=== PATIENT | male | born 1950 | race Caucasian/White ===

== ENCOUNTER 2018-08-01 18:05 | Inpatient (IN) | payer MEDICARE ==
--- NOTE | 2018-08-01 18:34 | ED ---
General Adult HPI - General Chief complaint: Neuro Symptoms/Deficit Stated complaint: poss aspiration, coughing, weakness Time Seen by Provider: 08/01/18 18:15 Source: patient, RN notes reviewed Mode of arrival: EMS Limitations: no limitations - History of Present Illness Initial comments: This is a 68-year-old male who presents to the emergency department with the complaint of inability to swallow and coughing a lot since he had problems swallowing earache this started all at 9:00 this morning. Patient states he thinks he aspirated something into his lungs. Since then he has developed some left-sided facial droop and some slurred speech. Denies any headache patient denies noticing any blurred vision. Symptoms of facial droop slurred speech come from his . Patient has not appreciated any extremity weakness or coordination difficulties. Patient denies any fever or chills. Patient denies any chest pain difficulty breathing or shortness breath per patient denies abdominal pain patient denies nausea vomiting or diarrhea. - Related Data Home Medications Medication Instructions Recorded Confirmed Atorvastatin [Lipitor] 20 mg PO DAILY 08/01/18 08/01/18 Fenofibrate Nanocrystallized 145 mg PO DAILY 08/01/18 08/01/18 [Fenofibrate] NIFEdipine [Procardia XL] 90 mg PO DAILY 08/01/18 08/01/18 glipiZIDE [Glucotrol] 5 mg PO TID 08/01/18 08/01/18 metFORMIN HCL ER [Glucophage Xr] 1,000 mg PO HS 08/01/18 08/01/18 metFORMIN HCL ER [Glucophage Xr] 500 mg PO QAM 08/01/18 08/01/18 Allergies Allergy/AdvReac Type Severity Reaction Status Date / Time No Known Allergies Allergy Verified 08/01/18 18:23 Review of Systems ROS Statement: Those systems with pertinent positive or pertinent negative responses have been documented in the HPI. ROS Other: All systems not noted in ROS Statement are negative. Past Medical History Past Medical History: Diabetes Mellitus, Hyperlipidemia History of Any Multi-Drug Resistant Organisms: None Reported Additional Past Surgical History / Comment(s): cataract Past Psychological History: No Psychological Hx Reported Smoking Status: Never smoker Past Alcohol Use History: None Reported Past Drug Use History: None Reported General Exam - General Exam Comments Initial Comments: GENERAL: Patient is well-developed and well-nourished. Patient is nontoxic and well- hydrated and is in mild distress. ENT: Neck is soft and supple. No significant lymphadenopathy is noted. Oropharynx is clear. Moist mucous membranes. Neck has full range of motion without eliciting any pain. EYES: The sclera were anicteric and conjunctiva were pink and moist. Extraocular movements of the right eye shows inability to have a lateral gaze. Patient's pupil in that right eye is slightly larger than the left but is reactive. He should also has significant night nystagmus of both eyes. Eyelids were unremarkable. PULMONARY: Unlabored respirations. Good breath sounds bilaterally. No audible rales rhonchi or wheezing was noted. CARDIOVASCULAR: There is a regular rate and rhythm without any murmurs gallops or rubs. ABDOMEN: Soft and nontender with normal bowel sounds. No palpable organomegaly was noted. There is no palpable pulsatile mass. SKIN: Skin is clear with no lesions or rashes and otherwise unremarkable. NEUROLOGIC: Patient is alert and oriented x3. Patient has lateral gaze of the right eye with normal pupillary reflex but slightly larger pupil of the right. Patient has facial droop on the left. Patient also has some slurred speech. MUSCULOSKELETAL:. P Normal extremities with adequate strength and full range of motion. No lower extremity swelling or edema. No calf tenderness. LYMPHATICS: No significant lymphadenopathy is noted PSYCHIATRIC: Normal psychiatric evaluation. Limitations: no limitations Course Vital Signs 08/01/18 08/01/18 18:13 18:39 Temperature 97.7 F Pulse Rate 87 86 Respiratory 18 18 Rate Blood Pressure 146/87 134/79 O2 Sat by Pulse 95 100 Oximetry Medical Decision Making - Medical Decision Making EKG shows sinus rhythm at 82 bpm KS interval is 226 QRS is 98 QT interval 358 QTC is 418. Patient's EKG shows T-wave inversions in leads V4 V5 and V6 as well as 2 and some flattening of the T-wave in 3 and aVF. Code stroke was called for this patient was contacted immediately. Once his CT and CTA were done Dr. Ortiz was contacted again he reviewed the scans and determined there was no intervention necessary. I contacted Dr. Us he is aware the patient and the patient would be admitted upstairs. I spoke with Dr. Clinton he accepted the admission I wrote admitting orders. - Lab Data Result diagrams: 08/01/18 18:26 08/01/18 18:26 Lab Results 08/01/18 08/01/18 08/01/18 Range/Units 18:26 18:26 18:26 WBC 15.1 H (3.8-10.6) k/uL RBC 4.35 (4.30-5.90) m/uL Hgb 14.1 (13.0-17.5) gm/dL Hct 40.5 (39.0-53.0) % MCV 93.1 (80.0-100.0) fL MCH 32.4 (25.0-35.0) pg MCHC 34.8 (31.0-37.0) g/dL RDW 13.2 (11.5-15.5) % Plt Count 310 (150-450) k/uL Neutrophils % 85 % Lymphocytes % 9 % Monocytes % 4 % Eosinophils % 1 % Basophils % 0 % Neutrophils # 12.8 H (1.3-7.7) k/uL Lymphocytes # 1.4 (1.0-4.8) k/uL Monocytes # 0.6 (0-1.0) k/uL Eosinophils # 0.2 (0-0.7) k/uL Basophils # 0.0 (0-0.2) k/uL PT (9.0-12.0) sec INR (<1.2) APTT (22.0-30.0) sec Sodium 140 (137-145) mmol/L Potassium 4.5 (3.5-5.1) mmol/L Chloride 111 H (98-107) mmol/L Carbon Dioxide 17 L (22-30) mmol/L Anion Gap 12 mmol/L BUN 18 (9-20) mg/dL Creatinine 0.82 (0.66-1.25) mg/dL Est GFR (CKD-EPI)AfAm >90 (>60 ml/min/1.73 sqM) Est GFR (CKD-EPI)NonAf 90 (>60 ml/min/1.73 sqM) Glucose 229 H (74-99) mg/dL Calcium 9.4 (8.4-10.2) mg/dL Total Bilirubin 0.5 (0.2-1.3) mg/dL AST 23 (17-59) U/L ALT 38 (21-72) U/L Alkaline Phosphatase 54 (38-126) U/L Total Creatine Kinase 52 L (55-170) U/L CK-MB (CK-2) 0.9 (0.0-2.4) ng/mL CK-MB (CK-2) Rel Index 1.7 Troponin I <0.012 (0.000-0.034) ng/mL Total Protein 6.8 (6.3-8.2) g/dL Albumin 4.1 (3.5-5.0) g/dL 08/01/18 Range/Units 18:26 WBC (3.8-10.6) k/uL RBC (4.30-5.90) m/uL Hgb (13.0-17.5) gm/dL Hct (39.0-53.0) % MCV (80.0-100.0) fL MCH (25.0-35.0) pg MCHC (31.0-37.0) g/dL RDW (11.5-15.5) % Plt Count (150-450) k/uL Neutrophils % % Lymphocytes % % Monocytes % % Eosinophils % % Basophils % % Neutrophils # (1.3-7.7) k/uL Lymphocytes # (1.0-4.8) k/uL Monocytes # (0-1.0) k/uL Eosinophils # (0-0.7) k/uL Basophils # (0-0.2) k/uL PT 10.0 (9.0-12.0) sec INR 0.9 (<1.2) APTT 18.3 L (22.0-30.0) sec Sodium (137-145) mmol/L Potassium (3.5-5.1) mmol/L Chloride (98-107) mmol/L Carbon Dioxide (22-30) mmol/L Anion Gap mmol/L BUN (9-20) mg/dL Creatinine (0.66-1.25) mg/dL Est GFR (CKD-EPI)AfAm (>60 ml/min/1.73 sqM) Est GFR (CKD-EPI)NonAf (>60 ml/min/1.73 sqM) Glucose (74-99) mg/dL Calcium (8.4-10.2) mg/dL Total Bilirubin (0.2-1.3) mg/dL AST (17-59) U/L ALT (21-72) U/L Alkaline Phosphatase (38-126) U/L Total Creatine Kinase (55-170) U/L CK-MB (CK-2) (0.0-2.4) ng/mL CK-MB (CK-2) Rel Index Troponin I (0.000-0.034) ng/mL Total Protein (6.3-8.2) g/dL Albumin (3.5-5.0) g/dL Critical Care Time Critical Care Time: Yes Total Critical Care Time: 35 Disposition Clinical Impression: Cerebrovascular accident Disposition: ADMITTED IP TO THIS HOSP Referrals: Shannon Fischer DO [Primary Care Provider] - 1-2 days Time of Disposition: 20:38
[2018-08-01 18:39] LABS: Basophils % (A) 0 %; Eosinophils # (A) 0.2 k/uL (0-0.7); Eosinophils % (A) 1 %; HCT 40.5 % (39.0-53.0); HGB 14.1 gm/dL (13.0-17.5); Lymphocytes # (A) 1.4 k/uL (1.0-4.8); Lymphocytes % (A) 9 %; MCH 32.4 pg (25.0-35.0); MCHC 34.8 g/dL (31.0-37.0); MCV 93.1 fL (80.0-100.0); Mean Platelet Volume 6.6; Monocytes # (A) 0.6 k/uL (0-1.0); Monocytes % (A) 4 %; Neutrophils # (A) 12.8 k/uL (1.3-7.7); Neutrophils % (A) 85 %; Platelet Count 310 k/uL (150-450); RBC 4.35 m/uL (4.30-5.90); RDW 13.2 % (11.5-15.5); WBC 15.1 k/uL (3.8-10.6)
--- NOTE | 2018-08-01 18:53 | CT ---
EXAMINATION TYPE: CT brain wo con for TPA DATE OF EXAM: 08/01/2018 COMPARISON: None HISTORY: Neuro deficits. CT DLP: 1022 mGycm Automated exposure control for dose reduction was used. FINDINGS: There is cerebral cortical atrophy. There is no mass effect nor midline shift. There is no sign of in tracranial hemorrhage. There is some patchy hypodensity in the periventricular white matter. IMPRESSION: CEREBRAL ATROPHY AND CHRONIC SMALL VESSEL ISCHEMIA. NO ACUTE INTRACRANIAL ABNORMALITY.
[2018-08-01 18:54] LABS: INR 0.9 (<1.2)
[2018-08-01 19:01] LABS: Creatine Kinase 52 U/L (55-170)
[2018-08-01 19:03] LABS: ALT 38 U/L (21-72); AST 23 U/L (17-59); Albumin 4.1 g/dL (3.5-5.0); Alkaline Phosphatase 54 U/L (38-126); Anion Gap 12 mmol/L; Blood Urea Nitrogen 18 mg/dL (9-20); Calcium 9.4 mg/dL (8.4-10.2); Carbon Dioxide 17 mmol/L (22-30); Chloride 111 mmol/L (98-107); Glucose 229 mg/dL (74-99); Potassium 4.5 mmol/L (3.5-5.1); Sodium 140 mmol/L (137-145); Total Bilirubin 0.5 mg/dL (0.2-1.3); Total Protein 6.8 g/dL (6.3-8.2)
--- NOTE | 2018-08-01 19:11 | CT ---
EXAMINATION TYPE: CODE STROKE: CTA head neck DATE OF EXAM: 08/01/2018 HISTORY: Neuro deficits. COMPARISON: None CT DLP: 364.6 mGycm. Automated Exposure Control for Dose Reduction was Utilized. TECHNIQUE: CTA scan of the neck is performed with IV Contrast, patient injected with 65ml mL of Isov ue 370, axial images are obtained, coronal and sagittal reformatted images are reviewed. Three-D amy nstructed images are created on an independent workstation and reviewed. FINDINGS: There is normal branching pattern of the great vessels on the aortic arch. There is bilateral arteria l flow in the subclavian arteries. There is bilateral arterial flow in the vertebral arteries. There is arterial flow in the common internal and external carotid arteries bilaterally. There is arterial flow in the vertebrobasilar artery system. There is wide patency of the carotid artery bifurcations. I see no evidence of hemodynamic stenosis. There is arterial flow in the anterior middle and posterior cerebral arteries. There is normal contra st opacification of the venous sinuses. I see no evidence of intracranial aneurysm or neovascularity. There is no evidence Of hemodynamic stenosis. IMPRESSION: Negative CT angiogram of the neck. Negative CT angiogram of the brain. No evidence of hemodynamic stenosis.
[2018-08-01 19:14] LABS: Creatine Kinase MB 0.9 ng/mL (0.0-2.4); Troponin I <0.012 ng/mL (0.000-0.034)
[2018-08-01 19:17] LABS: Partial Thromboplastin Time 18.3 sec (22.0-30.0)
[2018-08-01] MEDS ORDERED: ASPIRIN 325 MG TAB PO STA (20:29)
[2018-08-01] MEDS ORDERED: ATORVASTATIN 80 MG TAB PO STA (20:29)
--- NOTE | 2018-08-01 21:16 | XR ---
EXAMINATION TYPE: XR chest 2V DATE OF EXAM: 08/01/2018 COMPARISON: NONE HISTORY: Weakness difficulty breathing TECHNIQUE: Frontal and lateral views of the chest are obtained. FINDINGS: There is no heart failure nor confluent pneumonic infiltrate. Costophrenic angles are benjamin r. Bony thorax is intact. There are chest leads. IMPRESSION: No active cardia pulmonary disease. Normal heart.
[2018-08-02] MEDS ORDERED: ATORVASTATIN 20 MG TAB PO SCH (00:43)
[2018-08-02] MEDS ORDERED: NALOXONE 0.4 MG/ML 1 ML VIAL IV PRN (00:45)
[2018-08-02] MEDS: SODIUM CHLORIDE 0.9% 1,000 ML IV SCH ×2 (01:38→11:55)
--- NOTE | 2018-08-02 03:07 | P.HPIM ---
History of Present Illness H&P Date: 08/01/18 Chief Complaint: Dysphagia and unsteady gait 68-year-old male with history of diabetes mellitus and hypertension Patient presented to the hospital due to worsening neurologic symptoms started all of a sudden today. Patient reports he was at his baseline status of health up until last night. However when he woke up this morning and tried to drink some water he had some dysphagia didn't feel well so he decided sleep more and then he woke up around noon tried to eat something and he again had dysphagia described as trouble swallowing and choking. His noticed that his voice was not normal kind of muffled. He went back to bed but then later on when his woke him up later in the afternoon he found himself off balance and was falling to the left side and was unable to walk on his own that's when the family decided to come to the hospital. Code stroke was in initiated in the hospital and he was evaluated CT of the head was unremarkable CT angiogram of the head and neck was unremarkable for any stenosis. Neurology recommended observation for possible stroke. Otherwise patient denies any focal neurologic deficits in his extremities. He was also found to have left facial droop in the ER that the family didn't notice from earlier. Patient denies any history of stroke or CAD. Patient denies any GI bleeding denies any headache. He denies any hearing changes, denies any chest pain trouble breathing denies any abdominal pain nausea or vomiting. Patient also reporting some diplopia at time of interview which resolves with covering the right eye. He reports history of cataract in his right eye Review of Systems Pertinent positives as noted in HPI. All other systems were reviewed and are negative Past Medical History Past Medical History: Diabetes Mellitus, Hyperlipidemia History of Any Multi-Drug Resistant Organisms: None Reported Additional Past Surgical History / Comment(s): cataract Past Psychological History: No Psychological Hx Reported Smoking Status: Never smoker Past Alcohol Use History: None Reported Past Drug Use History: None Reported - Past Family History Father Family Medical History: CVA/TIA, Myocardial Infarction ([place]) Medications and Allergies Home Medications Medication Instructions Recorded Confirmed Type Atorvastatin [Lipitor] 20 mg PO DAILY 08/01/18 08/01/18 History Fenofibrate Nanocrystallized 145 mg PO DAILY 08/01/18 08/01/18 History [Fenofibrate] NIFEdipine [Procardia XL] 90 mg PO DAILY 08/01/18 08/01/18 History glipiZIDE [Glucotrol] 5 mg PO TID 08/01/18 08/01/18 History metFORMIN HCL ER [Glucophage Xr] 1,000 mg PO HS 08/01/18 08/01/18 History metFORMIN HCL ER [Glucophage Xr] 500 mg PO QAM 08/01/18 08/01/18 History Allergies Allergy/AdvReac Type Severity Reaction Status Date / Time No Known Allergies Allergy Verified 08/01/18 18:23 Physical Exam Vitals: Vital Signs Temp Pulse Resp BP Pulse Ox 08/01/18 18:39 86 18 134/79 100 08/01/18 18:13 97.7 F 87 18 146/87 95 Intake and Output 08/01/18 08/01/18 08/02/18 14:59 22:59 06:59 Other: Weight 90.718 kg Constitutional: No acute distress, conversant, pleasant Eyes: Anicteric sclerae, moist conjunctiva, no lid-lag Pupils equal round reactive to light Nystagmus bilateral eyes horizontal and vertical ENMT: NC/AT Oropharynx clear, no erythema, or exudates Neck: Supple, FROM, no masses, or JVD No carotid bruits No thyromegaly Lungs: Clear to auscultation Clear to percussion Normal respiratory effort, no accessory muscle use Cardiovascular: Heart regular in rate and rhythm, No murmurs, gallops, or rubs No peripheral edema Abdominal: Soft Nontender, no guarding, rebound or rigidity Abdomen moving with respiration Normoactive bowel sounds No hepatomegaly, No splenomegaly No palpable mass No abdominal wall hernia noted Skin: Normal temperature, tone, texture, turgor No induration No subcutaneous nodules No rash, lesions No ulcers Extremities: No digital cyanosis No clubbing Pedal pulses intact and symmetrical Radial pulses intact and symmetrical No calf tenderness Psychiatric: Alert and oriented to person, place and time Appropriate affect fair judgment Neuro speech is slightly muffled, Muscles Strength 5/5 in all 4 extremities Sensation to light touch grossly present throughout Cranial nerve VII shows upper motor lesion on the left side, limitation of right lateral rectus unknown chronicity per patient and family, nystagmus, otherwise cranial nerves unremarkable, no tongue deviation, uvula central, soft palate is symmetrical. No focal sensory deficits Finger-nose dysmetria resolved by covering the right eye, election exam was unremarkable, plantar reflex was upwards on the right side and equivocal on the left Gait not tested, patient reported unsteady gait home Lymphatics: no palpable cervical or supraclavicular , or inguinal lymph nodes Results CBC & Chem 7: 08/01/18 18:26 08/01/18 18:26 Labs: Abnormal Lab Results - Last 24 Hours (Table) 08/01/18 08/01/18 08/01/18 Range/Units 18:26 18:26 18:26 WBC 15.1 H (3.8-10.6) k/uL Neutrophils # 12.8 H (1.3-7.7) k/uL APTT (22.0-30.0) sec Chloride 111 H (98-107) mmol/L Carbon Dioxide 17 L (22-30) mmol/L Glucose 229 H (74-99) mg/dL Total Creatine Kinase 52 L (55-170) U/L 08/01/18 Range/Units 18:26 WBC (3.8-10.6) k/uL Neutrophils # (1.3-7.7) k/uL APTT 18.3 L (22.0-30.0) sec Chloride (98-107) mmol/L Carbon Dioxide (22-30) mmol/L Glucose (74-99) mg/dL Total Creatine Kinase (55-170) U/L Assessment and Plan Assessment: 68-year-old male with history of diabetes mellitus and hypertension, admitted as an inpatient with anticipated length of stay more than 48 hours as patient presented with symptoms of left facial droop and dysphagia, suspected brainstem stroke. CT angiogram of the head and neck was unremarkable. Patient with a for further neurologic evaluation Plan: Acute CVA suspected brainstem due to symptoms of Left facial droop, dysphagia, and diplopia Full dose aspirin Lipitor Neurochecks CT angiogram the head and neck and CT of the head was reviewed Neuro consult PT/OT Check TSH, vitamin B12, echocardiogram of the heart Nothing by mouth Swallow eval Check MRI of the brain rule out brainstem ischemia Diabetes mellitus On insulin Hypertension Hold Procardia allow for permissive hypertension for the first 24-48 hours DVT prophylaxis mechanical due to acute CVA Surrogate decision-maker: Patient CODE STATUS: Full code Discussed with: Patient, ER, RN Anticipated discharge: 48-[address]: Pending clinical course A total of 60 minutes was spent on the care of this complex patient more than 50 % of the time was spent in counseling and care coordination.
[2018-08-02 06:14] LABS: Glucose,Whole Blood 156 mg/dL (75-99)
[2018-08-02] MEDS: INSULIN ASPART 100 UNIT/ML 1 ML 10 ML VIAL SQ SCH ×4 (06:16→20:54)
[2018-08-02] MEDS ORDERED: ASPIRIN 325 MG TAB PO SCH (09:00)
[2018-08-02] MEDS: ATORVASTATIN 80 MG TAB PO SCH (10:37)
--- NOTE | 2018-08-02 11:37 | MR ---
MR brain without contrast HISTORY: Brainstem stroke Multiplanar multisequence imaging through the brain. Correlation to CT brain 08/01/2018 There is restricted diffusion involving the left medulla posteriorly. There is corresponding abnormal signal on inversion recovery T2-weighted sequences. There is asymmetry in the flow void in the left vertebral artery as compared to the right on axial image 3, 4. Inversion recovery and T2-weighted seq uences show abnormal signal in the left aracely extending to the left cerebral peduncle. Scattered hyper intensities, confluent hyperintensity on T2 and inversion recovery sequence present in the periventri cular, pericallosal, subcortical and deep white matter. Cortical atrophy is present. Orbits are symme tric. Gaze of the globes is towards the left. Corpus callosum, pituitary, cervical medullary junction , cerebellopontine angles are unremarkable. IMPRESSION: Findings compatible with brainstem infarct as described. Additional areas of chronic smal l vessel ischemia and age-related atrophy. Asymmetric signal within the vertebral arteries, MRA may b e of benefit. Additional findings above.
[2018-08-02 11:38] LABS: Glucose,Whole Blood 184 mg/dL (75-99)
[2018-08-02] MEDS: HEPARIN SODIUM,PORCINE 5,000 UNIT/ML 1 ML VIAL SQ SCH ×2 (11:53→20:54)
--- NOTE | 2018-08-02 11:55 | ECHOF ---
Referral Reason:stroke MEASUREMENTS -------- HEIGHT: 152.4 cm WEIGHT: 90.7 kg BP: 149/96 RVIDd: 3.3 cm (< 3.3) IVSd: 1.3 cm (0.6 - 1.1) LVIDd: 4.9 cm (3.9 - 5.3) LVPWd: 1.2 cm (0.6 - 1.1) IVSs: 1.7 cm LVIDs: 3.6 cm LVPWs: 1.6 cm LAESV Index (A-L): 26.90 ml/m Ao Diam: 4.5 cm (2.0 - 3.7) AV Cusp: 1.6 cm (1.5 - 2.6) MV EXCURSION: 14.924 mm (> 18.000) MV EF SLOPE: 62 mm/s (70 - 150) EPSS: 0.3 cm MV E Marc: 0.64 m/s MV DecT: 237 ms MV A Marc: 0.93 m/s MV E/A Ratio: 0.69 AV maxP.02 mmHg AV meanP.89 mmHg AR PHT: 498 ms RAP: 5.00 mmHg RVSP: 20.73 mmHg FINDINGS -------- Sinus rhythm. This was a technically adequate study. The left ventricular size is normal. There is mild concentric left ventricular hypertrophy. Overa ll left ventricular systolic function is normal with, an EF between 55 - 60 %. The right ventricle is normal in size. Normal LA size by volume 22+/-6 ml/m2. The right atrial size is normal. There is mild aortic valve sclerosis. There is mild aortic regurgitation. Peak/mean gradient acro ss the Aortic Valve is 14.02mmHg / 6.89mmHg. The mitral valve leaflets are mildly thickened. Mild mitral regurgitation is present. Mild tricuspid regurgitation present. Right ventricular systolic pressure is normal at < 35 mmHg. The right ventricular systolic pressure, as measured by Doppler, is 20.73mmHg. Trace/mild (physiologic) pulmonic regurgitation. Aortic Root is Dilated and measures 4.5cm, Ascending is dilated and measures 4.1cm. There is no pericardial effusion. CONCLUSIONS -------- 1. Sinus rhythm. 2. This was a technically adequate study. 3. The left ventricular size is normal. 4. There is mild concentric left ventricular hypertrophy. 5. Overall left ventricular systolic function is normal with, an EF between 55 - 60 %. 6. Normal LA size by volume 22+/-6 ml/m2. 7. There is mild aortic valve sclerosis. 8. There is mild aortic regurgitation. 9. Peak/mean gradient across the Aortic Valve is 14.02mmHg / 6.89mmHg. 10. The mitral valve leaflets are mildly thickened. 11. Mild mitral regurgitation is present. 12. Mild tricuspid regurgitation present. 13. Right ventricular systolic pressure is normal at < 35 mmHg. 14. Trace/mild (physiologic) pulmonic regurgitation. 15. Aortic Root is Dilated and measures 4.5cm, Ascending is dilated and measures 4.1cm. 16. There is no pericardial effusion. AUTO APPRAISER: Arlene Ortiz RDCS
--- NOTE | 2018-08-02 13:00 | P.PN ---
Subjective Progress Note Date: 08/02/18 Patient is doing well this morning. He did not pass his bedside swallow study this morning. He continues to have facial symmetry with left facial droop. He denies any numbness or tingling anywhere. Objective - Vital Signs Vital signs: Vital Signs Temp 97.6 F 08/02/18 08:50 Pulse 71 08/02/18 08:50 Resp 18 08/02/18 08:50 BP 159/94 08/02/18 08:50 Pulse Ox 96 08/02/18 08:50 Intake & Output 08/01/18 08/02/18 08/02/18 18:59 06:59 18:59 Output Total 375 150 Balance -375 -150 Weight 90.718 kg 94.5 kg Output: Urine 375 150 Other: Voiding Method Urinal Urinal # Voids 1 1 - Exam General: The patient is awake and alert, in no distress Eye: there is normal conjunctiva bilaterally. Cardiovascular: Normal S1-S2, no S3-S4, no murmurs. Respiratory: Lungs clear to auscultation bilaterally Gastrointestinal: Abdomen is soft, nontender Musculoskeletal: There is no pedal edema. Neurological:. Speech is normal. Skin: Skin is warm and dry - Labs CBC & Chem 7: 08/01/18 18:26 08/01/18 18:26 Labs: Abnormal Lab Results - Last 24 Hours (Table) 08/01/18 08/01/18 08/01/18 Range/Units 18:26 18:26 18:26 WBC 15.1 H (3.8-10.6) k/uL Neutrophils # 12.8 H (1.3-7.7) k/uL APTT (22.0-30.0) sec Chloride 111 H (98-107) mmol/L Carbon Dioxide 17 L (22-30) mmol/L Glucose 229 H (74-99) mg/dL POC Glucose (mg/dL) (75-99) mg/dL Total Creatine Kinase 52 L (55-170) U/L 08/01/18 08/02/18 08/02/18 Range/Units 18:26 06:13 11:36 WBC (3.8-10.6) k/uL Neutrophils # (1.3-7.7) k/uL APTT 18.3 L (22.0-30.0) sec Chloride (98-107) mmol/L Carbon Dioxide (22-30) mmol/L Glucose (74-99) mg/dL POC Glucose (mg/dL) 156 H 184 H (75-99) mg/dL Total Creatine Kinase (55-170) U/L Assessment and Plan Assessment: 1. Acute CVA involving the brainstem. Noted on MRI of the brain. Continue full dose aspirin daily. Lipitor 80 mg daily. PT/OT/speech pathology evaluation. Patient failed his swallow study today. Scan of the brain and CT angiogram on presentation were both normal. Awaiting neurology evaluation. Echocardiogram showed preserved ejection fraction with no significant valvular abnormality and no intracardiac source for stroke. 2. Type 2 diabetes mellitus, oral agents on hold. Continue sliding scale insulin. A1c pending. 3. Essential hypertension, on Procardia at home. Currently on hold to allow permissive hypertension 4. DVT prophylaxis with subcu heparin Today, I reviewed his medication list and lab work results. Patient continues to be nothing by mouth. IV fluids changed to D5/half-normal saline at the 100 mL per hour. Aspirin changed to rectal while nothing by mouth. Continue telemetry monitoring. Thyroid function tests within normal range.
[2018-08-02] MEDS: DEXTROSE 5%-0.45% NACL 1,000 ML IV SCH ×2 (13:01→20:54)
--- NOTE | 2018-08-02 15:37 | P.CONS ---
History of Present Illness - Chief Complaint Gait disturbance - History of Present Illness I had the opportunity to see patient for inpatient rehab consultation with regard to gait disturbance. He is admitted to [facility] August 01 with difficulty with swallowing as well as balance. Head CT demonstrates cerebral atrophy and age-related change. Angiogram CT negative. Chest x-ray negative. Brain MRI with brainstem infarct as well as white matter atrophy and age- related change. PT reports moderate assistance for bed mobility and transfer and minimal to moderate assistance for gait 20 feet with roller walker. OT reports minimal assistance for upper dressing and toileting and moderate assistance for lower dressing and bathing and transfers. Speech therapy reports severe oral pharyngeal dysphagia. Previous functional history as elicited from patient: 68-year-old right-handed white male who is lives and 2 floor home with . Both retired. does the laundry and patient does the cooking and a both drive. Patient independent with standing shower and gait without device. It is an intermittent smoker. Denies alcohol. Dr. King Maravilla is regular doctor. Family history father with [place]. Review of Systems Review of systems: ENT: Swallow disturbance. Eyes: Denies discharge or photophobia. Cardiac: Denies chest pain or palpitation. Pulmonary: Denies cough or shortness of breath. Gastrointestinal: Denies nausea, emesis, constipation, diarrhea. Genitourinary: Denies discharge or frequency. Musculoskeletal: Denies muscle or bone aches. Neurologic: Balance disturbance. Endocrine: Denies shakes or sweats. Oncology: Denies cancers. Dermatologic: Denies rash, itching, pruritus. ALLERGY/immunology: Denies sneezes, rashes. Past Medical History Past Medical History: Diabetes Mellitus, Hyperlipidemia Additional Past Medical History / Comment(s): skin cancer with removal. pt is poor historian - no family with him. History of Any Multi-Drug Resistant Organisms: None Reported Additional Past Surgical History / Comment(s): cataract Past Anesthesia/Blood Transfusion Reactions: No Reported Reaction Additional Past Anesthesia/Blood Transfusion Reaction / Comm: pt states he has never had a blood transfusion or anesthesia Past Psychological History: No Psychological Hx Reported Smoking Status: Never smoker Past Alcohol Use History: None Reported Past Drug Use History: None Reported - Past Family History Father Family Medical History: CVA/TIA, Myocardial Infarction ([place]) Medications and Allergies Home Medications Medication Instructions Recorded Confirmed Type Atorvastatin [Lipitor] 20 mg PO DAILY 08/01/18 08/01/18 History Fenofibrate Nanocrystallized 145 mg PO DAILY 08/01/18 08/01/18 History [Fenofibrate] NIFEdipine [Procardia XL] 90 mg PO DAILY 08/01/18 08/01/18 History glipiZIDE [Glucotrol] 5 mg PO TID 08/01/18 08/01/18 History metFORMIN HCL ER [Glucophage Xr] 1,000 mg PO HS 08/01/18 08/01/18 History metFORMIN HCL ER [Glucophage Xr] 500 mg PO QAM 08/01/18 08/01/18 History Allergies Allergy/AdvReac Type Severity Reaction Status Date / Time No Known Allergies Allergy Verified 08/01/18 18:23 Physical Exam Vitals: Vital Signs Temp Pulse Pulse Resp BP BP Pulse Ox 08/02/18 12:30 70 18 162/89 95 08/02/18 08:50 97.6 F 71 18 159/94 96 08/02/18 03:36 81 20 149/90 96 08/02/18 03:32 81 20 08/02/18 00:39 97.9 F 83 20 136/84 96 08/01/18 18:39 86 18 134/79 100 08/01/18 18:13 97.7 F 87 18 146/87 95 Intake and Output 08/02/18 08/02/18 08/02/18 06:59 14:59 22:59 Output Total 375 450 Balance -375 -450 Output: Urine 375 450 Other: Voiding Method Urinal Urinal # Voids 1 1 # Bowel Movements 0 Weight 94.5 kg Skin: Good color, texture, turgor. General: Medium build and comfortable appearance. Head: Normocephalic, atraumatic. Eyes: Symmetric. Pupils equal round. Ears: Symmetric. Hearing within normal limits. Mouth: Clear. Neck: Supple. Carotid without bruit. Cardiac: Regular rate and rhythm. Lungs: Clear anteriorly and posteriorly. Abdomen: Soft active nontender. Extremities: Normal tone. Neurological: Mental status: Alert, cooperative, pleasant. Cranial nerves: Symmetric facial tone and trapezius. Motor: Normal strength and isolation all 4 limbs but ataxic. Sensation: Intact throughout. DTRs: Symmetric and equal throughout. Mobility: Sits with assistance. Results CBC & Chem 7: 08/01/18 18:26 12/13/18 18:26 Labs: Abnormal Lab Results - Last 24 Hours (Table) 08/01/18 08/01/18 08/01/18 Range/Units 18:26 18:26 18:26 WBC 15.1 H (3.8-10.6) k/uL Neutrophils # 12.8 H (1.3-7.7) k/uL APTT (22.0-30.0) sec Chloride 111 H (98-107) mmol/L Carbon Dioxide 17 L (22-30) mmol/L Glucose 229 H (74-99) mg/dL POC Glucose (mg/dL) (75-99) mg/dL Total Creatine Kinase 52 L (55-170) U/L 08/01/18 08/02/18 08/02/18 Range/Units 18:26 06:13 11:36 WBC (3.8-10.6) k/uL Neutrophils # (1.3-7.7) k/uL APTT 18.3 L (22.0-30.0) sec Chloride (98-107) mmol/L Carbon Dioxide (22-30) mmol/L Glucose (74-99) mg/dL POC Glucose (mg/dL) 156 H 184 H (75-99) mg/dL Total Creatine Kinase (55-170) U/L Assessment and Plan (1) Cerebrovascular accident Current Visit: Yes Status: Acute Code(s): I63.9 - CEREBRAL INFARCTION, UNSPECIFIED SNOMED Code(s): 481530136 Plan: Impression: 1. Gait disturbance. 2. 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 3. Diabetes. 4. Dyslipidemia. Comments and plan: At this time PT, OT, [employer] MACHINE OPERATOR ongoing. Safety concerns noted. Have discussed with patient will follow therapy over weekend and reassess Sunday a.m. for possible admission to rehab unit. Patient seems agreeable if necessary.
[2018-08-02] MEDS: ASPIRIN 300 MG SUPP RECTAL SCH (16:45)
[2018-08-02 17:04] LABS: Hemoglobin A1C 7.8 % (4.0-6.0)
[2018-08-02 17:10] LABS: Glucose,Whole Blood 173 mg/dL (75-99)
--- NOTE | 2018-08-02 17:12 | P.CONS ---
History of Present Illness - Reason for Consult Consult date: 08/02/18 Stroke - Chief Complaint Dysphagia - History of Present Illness Is a pleasant 68-year-old male being evaluated by the neurology service for symptoms of stroke. The patient was in his usual state of good health up until the other night. He woke up and tried to drink some water and he had some significant dysphagia. He went back to sleep and woke up hours later again he tried to eat and had significant dysphagia. His noticed weakening of his voice. He laid back down to sleep. When he awoke he was significantly off balance and falling to the left side. And he had left facial weakness. He came to the [facility] emergency room and code stroke was called. He was not a candidate for TPA. Initial CT showed no acute intracranial abnormalities CTA of the head and neck showed no significant stenosis. Subsequent MRI of the brain showed brainstem infarct. There was also some chronic small vessel ischemia and age-related atrophy. He has failed a swallowing study. Speech therapy has been working with him and he is able to develop ice chips and swallow without choking. Otherwise, he is nothing by mouth at this time. 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 He still has very poor vision in the right eye. He was complaining of double vision during these attacks. Review of Systems All systems: negative Constitutional: Reports as per HPI Past Medical History Past Medical History: Diabetes Mellitus, Hyperlipidemia Additional Past Medical History / Comment(s): skin cancer with removal. pt is poor historian - no family with him. History of Any Multi-Drug Resistant Organisms: None Reported Additional Past Surgical History / Comment(s): cataract Past Anesthesia/Blood Transfusion Reactions: No Reported Reaction Additional Past Anesthesia/Blood Transfusion Reaction / Comm: pt states he has never had a blood transfusion or anesthesia Past Psychological History: No Psychological Hx Reported Smoking Status: Never smoker Past Alcohol Use History: None Reported Past Drug Use History: None Reported - Past Family History Father Family Medical History: CVA/TIA, Myocardial Infarction ([place]) Medications and Allergies Home Medications Medication Instructions Recorded Confirmed Type Atorvastatin [Lipitor] 20 mg PO DAILY 08/01/18 08/01/18 History Fenofibrate Nanocrystallized 145 mg PO DAILY 08/01/18 08/01/18 History [Fenofibrate] NIFEdipine [Procardia XL] 90 mg PO DAILY 08/01/18 08/01/18 History glipiZIDE [Glucotrol] 5 mg PO TID 08/01/18 08/01/18 History metFORMIN HCL ER [Glucophage Xr] 1,000 mg PO HS 08/01/18 08/01/18 History metFORMIN HCL ER [Glucophage Xr] 500 mg PO QAM 08/01/18 08/01/18 History Allergies Allergy/AdvReac Type Severity Reaction Status Date / Time No Known Allergies Allergy Verified 08/01/18 18:23 Physical Exam Vitals: Vital Signs Temp Pulse Pulse Resp BP BP Pulse Ox 08/02/18 12:30 70 18 162/89 95 08/02/18 08:50 97.6 F 71 18 159/94 96 08/02/18 03:36 81 20 149/90 96 08/02/18 03:32 81 20 08/02/18 00:39 97.9 F 83 20 136/84 96 08/01/18 18:39 86 18 134/79 100 08/01/18 18:13 97.7 F 87 18 146/87 95 Intake and Output 08/02/18 08/02/18 08/02/18 06:59 14:59 22:59 Output Total 375 450 Balance -375 -450 Output: Urine 375 450 Other: Voiding Method Urinal Urinal # Voids 1 1 # Bowel Movements 0 Weight 94.5 kg - Constitutional General appearance: cooperative, no acute distress - EENT Right lateral rectus weakness causing correctable inward gaze Eyes: no abnormal pupil, no EOMI, PERRLA, no ptosis ENT: hearing grossly normal - Neck Neck: normal ROM, no rigidity - Respiratory Respiratory: negative: prolonged expiration, prolonged inspiration - Cardiovascular Rhythm: regular - Gastrointestinal General gastrointestinal: no distended, no tenderness - Neurologic Patient is alert awake and oriented 3. Speech is normal except it does fatigue. Language is normal. Strength is full in bilateral upper lower extremities. He has no sensory deficit. He has definite left side dysmetria and dysdiadochokinesia on the upper extremity. Negative pronator drift. No tremors or seizure-like activities are seen. Results CBC & Chem 7: 08/01/18 18:26 08/01/18 18:26 Labs: Abnormal Lab Results - Last 24 Hours (Table) 08/01/18 08/01/18 08/01/18 Range/Units 18:26 18:26 18:26 WBC 15.1 H (3.8-10.6) k/uL Neutrophils # 12.8 H (1.3-7.7) k/uL APTT (22.0-30.0) sec Chloride 111 H (98-107) mmol/L Carbon Dioxide 17 L (22-30) mmol/L Glucose 229 H (74-99) mg/dL POC Glucose (mg/dL) (75-99) mg/dL Total Creatine Kinase 52 L (55-170) U/L 08/01/18 08/02/18 08/02/18 Range/Units 18:26 06:13 11:36 WBC (3.8-10.6) k/uL Neutrophils # (1.3-7.7) k/uL APTT 18.3 L (22.0-30.0) sec Chloride (98-107) mmol/L Carbon Dioxide (22-30) mmol/L Glucose (74-99) mg/dL POC Glucose (mg/dL) 156 H 184 H (75-99) mg/dL Total Creatine Kinase (55-170) U/L Assessment and Plan (1) Diplopia Current Visit: Yes Status: Acute Code(s): H53.2 - DIPLOPIA SNOMED Code(s) : 92313895 (2) Dysmetria Current Visit: Yes Status: Acute Code(s): R27.8 - OTHER LACK OF COORDINATION SNOMED Code(s): 71872579 (3) Cerebrovascular accident Current Visit: Yes Status: Acute Code(s): I63.9 - CEREBRAL INFARCTION, UNSPECIFIED SNOMED Code(s): 622845462 (4) Gait disturbance Current Visit: Yes Status: Acute Code(s): R26.9 - UNSPECIFIED ABNORMALITIES OF GAIT AND MOBILITY SNOMED Code(s): 37081510 (5) Diabetes Current Visit: Yes Status: Chronic Code(s): E11.9 - TYPE 2 DIABETES MELLITUS WITHOUT COMPLICATIONS SNOMED Code(s): 74133549 (6) Dyslipidemia Current Visit: Yes Status: Chronic Code(s): E78.5 - HYPERLIPIDEMIA, UNSPECIFIED SNOMED Code(s): 651796820 Plan: The patient has suffered a brainstem stroke. He is nothing by mouth right now and receiving rectal aspirin. If his swallowing improves he should be restarted on Lipitor and Plavix. Continue to work with physical therapy, occupational therapy, and speech therapy. He is being evaluated for placement in inpatient rehabilitation. Continue neurological checks. No further neurological workup is needed at this time. We may be called for any significant changes in his neurological status. I have performed a history and physical on the above patient. I have reviewed the above note, and agree.
[2018-08-02 20:38] LABS: Glucose,Whole Blood 156 mg/dL (75-99)
[2018-08-03 05:57] LABS: Glucose,Whole Blood 173 mg/dL (75-99)
[2018-08-03] MEDS: INSULIN ASPART 100 UNIT/ML 1 ML 10 ML VIAL SQ SCH ×4 (06:36→20:53)
[2018-08-03 06:40] LABS: Basophils % (A) 1 %; Eosinophils # (A) 0.2 k/uL (0-0.7); Eosinophils % (A) 3 %; HCT 40.6 % (39.0-53.0); HGB 13.1 gm/dL (13.0-17.5); Lymphocytes # (A) 2.1 k/uL (1.0-4.8); Lymphocytes % (A) 30 %; MCH 29.9 pg (25.0-35.0); MCHC 32.3 g/dL (31.0-37.0); MCV 92.6 fL (80.0-100.0); Mean Platelet Volume 6.6; Monocytes # (A) 0.5 k/uL (0-1.0); Monocytes % (A) 7 %; Neutrophils # (A) 4.1 k/uL (1.3-7.7); Neutrophils % (A) 58 %; Platelet Count 327 k/uL (150-450); RBC 4.38 m/uL (4.30-5.90); RDW 13.1 % (11.5-15.5)
[2018-08-03 07:02] LABS: ALT 36 U/L (21-72); AST 25 U/L (17-59); Albumin 3.9 g/dL (3.5-5.0); Alkaline Phosphatase 45 U/L (38-126); Anion Gap 10 mmol/L; Blood Urea Nitrogen 12 mg/dL (9-20); Calcium 9.4 mg/dL (8.4-10.2); Carbon Dioxide 22 mmol/L (22-30); Chloride 109 mmol/L (98-107); Cholesterol 150 mg/dL (<200); Glucose 170 mg/dL (74-99); HDL Cholesterol 31 mg/dL (40-60); LDL Cholesterol,Calculated 66 mg/dL (0-99); Magnesium 1.8 mg/dL (1.6-2.3); Potassium 3.9 mmol/L (3.5-5.1); Sodium 141 mmol/L (137-145); Total Bilirubin 0.4 mg/dL (0.2-1.3); Total Protein 6.7 g/dL (6.3-8.2); Triglycerides 264 mg/dL (<150)
[2018-08-03] MEDS: DEXTROSE 5%-0.45% NACL 1,000 ML IV SCH ×2 (09:37→19:00)
[2018-08-03] MEDS: HEPARIN SODIUM,PORCINE 5,000 UNIT/ML 1 ML VIAL SQ SCH ×2 (09:38→20:53)
[2018-08-03 11:15] LABS: Glucose,Whole Blood 180 mg/dL (75-99)
--- NOTE | 2018-08-03 11:40 | P.PN ---
Subjective Progress Note Date: 08/03/18 Patient is doing well this morning. He remain nothing by mouth since he failed swallow study. He is practicing swallowing exercises as directed by speech pathology. No acute events overnight reported by nursing staff. Objective - Vital Signs Vital signs: Vital Signs Temp 98.5 F 08/03/18 08:00 Pulse 70 08/03/18 04:00 Resp 16 08/03/18 08:00 BP 162/92 08/03/18 08:00 Pulse Ox 96 08/03/18 08:00 Intake & Output 08/02/18 08/03/18 08/03/18 18:59 06:59 18:59 Output Total 450 1650 Balance -450 -1650 Weight 92.4 kg Output: Urine 450 1650 Other: Voiding Method Urinal Urinal # Voids 1 # Bowel Movements 0 - Exam General: The patient is awake and alert, in no distress Eye: there is normal conjunctiva bilaterally. Cardiovascular: Normal S1-S2, no S3-S4, no murmurs. Respiratory: Lungs clear to auscultation bilaterally Gastrointestinal: Abdomen is soft, nontender Musculoskeletal: There is no pedal edema. Neurological:. Speech is normal. Skin: Skin is warm and dry - Labs CBC & Chem 7: 08/03/18 05:32 08/03/18 05:32 Labs: Abnormal Lab Results - Last 24 Hours (Table) 08/01/18 08/02/18 08/02/18 Range/Units 21:00 11:36 16:57 Chloride (98-107) mmol/L Glucose (74-99) mg/dL POC Glucose (mg/dL) 184 H 173 H (75-99) mg/dL Hemoglobin A1c 7.8 H (4.0-6.0) % Triglycerides (<150) mg/dL HDL Cholesterol (40-60) mg/dL 08/02/18 08/03/18 08/03/18 Range/Units 20:30 05:32 05:53 Chloride 109 H (98-107) mmol/L Glucose 170 H (74-99) mg/dL POC Glucose (mg/dL) 156 H 173 H (75-99) mg/dL Hemoglobin A1c (4.0-6.0) % Triglycerides 264 H (<150) mg/dL HDL Cholesterol 31 L (40-60) mg/dL 08/03/18 Range/Units 11:13 Chloride (98-107) mmol/L Glucose (74-99) mg/dL POC Glucose (mg/dL) 180 H (75-99) mg/dL Hemoglobin A1c (4.0-6.0) % Triglycerides (<150) mg/dL HDL Cholesterol (40-60) mg/dL Assessment and Plan Assessment: 1. Acute CVA involving the brainstem. Noted on MRI of the brain. Continue full dose aspirin daily. Lipitor 80 mg daily. PT/OT/speech pathology evaluation. Patient failed his swallow study today. CT scan of the brain and CT angiogram on presentation were both normal. Appreciate neurology recommendations. Echocardiogram showed preserved ejection fraction with no significant valvular abnormality and no intracardiac source for stroke. 2. Type 2 diabetes mellitus, oral agents on hold. Continue sliding scale insulin. A1c 7.8 3. Essential hypertension, on Procardia at home. Currently on hold to allow permissive hypertension 4. DVT prophylaxis with subcu heparin 5. Discharge planning: Plan for inpatient rehab on Sunday Today, I reviewed his medication list and lab work results. Patient continues to be nothing by mouth. IV fluids with D5/half-normal saline at the 100 mL per hour. Aspirin rectal while nothing by mouth. Continue telemetry monitoring. Thyroid function tests within normal range.
[2018-08-03] MEDS: ATORVASTATIN 80 MG TAB PO SCH ×2 (12:14→14:58)
[2018-08-03] MEDS: ASPIRIN 300 MG SUPP RECTAL SCH (14:58)
[2018-08-03 15:44] LABS: Glucose,Whole Blood 167 mg/dL (75-99)
[2018-08-03 20:32] LABS: Glucose,Whole Blood 155 mg/dL (75-99)
[2018-08-04 05:46] LABS: Glucose,Whole Blood 190 mg/dL (75-99)
[2018-08-04] MEDS: DEXTROSE 5%-0.45% NACL 1,000 ML IV SCH ×3 (06:21→23:00)
[2018-08-04] MEDS: INSULIN ASPART 100 UNIT/ML 1 ML 10 ML VIAL SQ SCH ×4 (06:21→20:35)
[2018-08-04] MEDS: ATORVASTATIN 80 MG TAB PO SCH (08:46)
[2018-08-04] MEDS: HEPARIN SODIUM,PORCINE 5,000 UNIT/ML 1 ML VIAL SQ SCH ×2 (08:52→20:32)
[2018-08-04] MEDS: ASPIRIN 300 MG SUPP RECTAL SCH (08:52)
[2018-08-04 11:03] LABS: Glucose,Whole Blood 174 mg/dL (75-99)
--- NOTE | 2018-08-04 14:01 | P.PN ---
Subjective Progress Note Date: 08/04/18 Patient is doing fairly well today. He feels that he is more off balance this morning compared to yesterday. Practicing swallowing exercises as directed by speech pathologist. No acute events reported to me my nursing staff overnight. Objective - Vital Signs Vital signs: Vital Signs Temp 96.9 F L 08/04/18 08:00 Pulse 77 08/04/18 08:00 Resp 15 08/04/18 03:40 BP 152/95 08/04/18 08:00 Pulse Ox 92 L 08/04/18 08:00 Intake & Output 08/03/18 08/04/18 08/04/18 18:59 06:59 18:59 Intake Total 800 Output Total 800 850 100 Balance 0 -850 -100 Weight 92 kg Intake: Intake, IV Titration 800 Amount Dextrose 5%-0.45% NaCl 1, 800 000 ml @ 100 mls/hr IV . Q10H ARCELIA Rx#:[id number] Oral 0 Output: Urine 800 850 100 Other: Voiding Method Urinal Urinal # Voids 3 - Exam General: The patient is awake and alert, in no distress Eye: there is normal conjunctiva bilaterally. Cardiovascular: Normal S1-S2, no S3-S4, no murmurs. Respiratory: Lungs clear to auscultation bilaterally Gastrointestinal: Abdomen is soft, nontender Musculoskeletal: There is no pedal edema. Neurological:. Speech is normal. Skin: Skin is warm and dry - Labs CBC & Chem 7: 08/03/18 05:32 08/03/18 05:32 Labs: Abnormal Lab Results - Last 24 Hours (Table) 08/03/18 08/03/18 08/04/18 Range/Units 15:43 20:30 05:45 POC Glucose (mg/dL) 167 H 155 H 190 H (75-99) mg/dL 08/04/18 Range/Units 11:01 POC Glucose (mg/dL) 174 H (75-99) mg/dL Assessment and Plan Assessment: This is a 68-year-old male with past medical history noted below who presented to the emergency room originally with what he describes as trouble swallowing and choking. Patient was evaluated in the emergency room and a code stroke was called. Initial computed tomography scan of the brain reported with no acute intracranial findings. Patient was admitted to the hospital for further evaluation. 1. Acute CVA involving the brainstem. Noted on MRI of the brain. Continue full dose aspirin daily. Lipitor 80 mg daily. PT/OT/speech pathology evaluation. Patient failed his swallow study on Sunday. CT scan of the brain and CT angiogram on presentation were both normal. Appreciate neurology recommendations. Echocardiogram showed preserved ejection fraction with no significant valvular abnormality and no intracardiac source for stroke. 2. Type 2 diabetes mellitus, oral agents on hold. Continue sliding scale insulin. A1c 7.8 3. Essential hypertension, on Procardia at home. Currently on hold to allow permissive hypertension 4. Dysphagia, patient states swallow study on Sunday. Plan to repeat swallow study on Sunday. If patient fail again the need to consider alternative route of nutrition including TPN or possibly a PEG tube. Currently getting IV fluids. 5. DVT prophylaxis with subcu heparin 6. Discharge planning: Plan for inpatient rehab on Sunday. Patient was seen by Dr. Valente Today, I reviewed his medication list and lab work results. Patient continues to be nothing by mouth. IV fluids with D5/half-normal saline at the 100 mL per hour. Aspirin rectal while nothing by mouth. Continue telemetry monitoring. Thyroid function tests within normal range.
[2018-08-04 16:14] LABS: Glucose,Whole Blood 164 mg/dL (75-99)
[2018-08-04 20:42] LABS: Glucose,Whole Blood 177 mg/dL (75-99)
[2018-08-05 05:59] LABS: Glucose,Whole Blood 182 mg/dL (75-99)
[2018-08-05] MEDS: INSULIN ASPART 100 UNIT/ML 1 ML 10 ML VIAL SQ SCH ×4 (06:21→21:08)
[2018-08-05 06:29] LABS: Basophils % (A) 0 %; Eosinophils # (A) 0.2 k/uL (0-0.7); Eosinophils % (A) 3 %; HCT 41.9 % (39.0-53.0); HGB 14.2 gm/dL (13.0-17.5); Lymphocytes # (A) 2.4 k/uL (1.0-4.8); Lymphocytes % (A) 31 %; MCH 30.9 pg (25.0-35.0); MCHC 33.8 g/dL (31.0-37.0); MCV 91.5 fL (80.0-100.0); Mean Platelet Volume 6.3; Monocytes # (A) 0.5 k/uL (0-1.0); Monocytes % (A) 7 %; Neutrophils # (A) 4.5 k/uL (1.3-7.7); Neutrophils % (A) 57 %; Platelet Count 320 k/uL (150-450); RBC 4.58 m/uL (4.30-5.90); RDW 13.1 % (11.5-15.5); WBC 7.9 k/uL (3.8-10.6)
[2018-08-05 06:38] LABS: Anion Gap 10 mmol/L; Blood Urea Nitrogen 13 mg/dL (9-20); Calcium 9.3 mg/dL (8.4-10.2); Carbon Dioxide 22 mmol/L (22-30); Chloride 107 mmol/L (98-107); Glucose 177 mg/dL (74-99); Potassium 3.7 mmol/L (3.5-5.1); Sodium 139 mmol/L (137-145)
[2018-08-05] MEDS: ATORVASTATIN 80 MG TAB PO SCH (07:45)
[2018-08-05] MEDS: ASPIRIN 300 MG SUPP RECTAL SCH (07:58)
[2018-08-05] MEDS: HEPARIN SODIUM,PORCINE 5,000 UNIT/ML 1 ML VIAL SQ SCH ×2 (07:58→19:33)
[2018-08-05 11:24] LABS: Glucose,Whole Blood 174 mg/dL (75-99)
--- NOTE | 2018-08-05 11:28 | FL ---
MODIFIED SWALLOW / DEGLUTITION STUDY DATE OF EXAM: 08/05/2018 CLINICAL HISTORY: 68-year-old male with trouble swallowing after brainstem CVA. Evaluate for aspirati on TECHNIQUE: Deglutition study is performed utilizing thin liquid barium. Total images: 1 cine clip with 158 images. Total fluoroscopy time: 16 seconds. COMPARISON: None. FINDINGS: There is no initiation of swallow and no movement of the epiglottis. Gross aspiration is encountered with attempted swallow of thin liquid barium. The exam was terminated. IMPRESSION: Exam prematurely terminated after a single attempt at swallowing thin barium which yielded an incompl ete swallow with gross aspiration. Please refer to speech therapist notes for further details if necessary.
[2018-08-05] MEDS: DEXTROSE 5%-0.45% NACL 1,000 ML IV SCH ×2 (11:30→19:33)
--- NOTE | 2018-08-05 14:43 | P.PN ---
Subjective Progress Note Date: 08/05/18 Principal diagnosis: dysphagia, muffled voice Patient is a 68-year-old male past medical history of diabetes mellitus and hypertension who presented to the ER with complaints of dysphasia, difficulty speaking, and uneven eyes. In the ER there was concern about stroke. He underwent a CTA of the head and neck which was unremarkable for any stenosis. CT of the brain was unremarkable. He was admitted for further monitoring. He was seen by speech therapy and failed his bedside swallow study. He was seen by neurology and had symptoms consistent with a brain stem stroke. They recommended restarting Lipitor and Plavix when he passed his swallow study. He was seen by Dr. Lara who will reassess him on 08/05 for possible admission to inpatient rehab. He was reassessed by speech therapy this morning and underwent barium swallow study which he failed. Recommendations are for PEG tube. Patient seen and examined at bedside with his . They're agreeable to PEG tube. We discussed benefits and risks. We discussed that we'll decrease his aspiration risk but not completely negate his chance of aspiration. We discussed that hopefully this. Nonpermanent feeding tube if he can rehab some of his swallowing deficits. He would like to proceed with PEG tube placement. He feels that his voice is slightly less multiple today. His eyes are more conjugate. He feels that overall he is improving. He would like to go to inpatient rehab and continue to improve. At home he was completely independent. He required no assistance in ADLs, he was cleaning, helping maintain his house, and cooking without difficulty. He is retired. Objective - Vital Signs Vital signs: Vital Signs Temp 98.5 F 08/05/18 08:00 Pulse 81 08/05/18 08:00 Resp 18 08/05/18 08:00 BP 150/103 08/05/18 08:00 Pulse Ox 93 L 08/05/18 08:00 Intake & Output 08/04/18 08/05/18 08/05/18 18:59 06:59 18:59 Intake Total 800 Output Total 900 Balance -900 800 Weight 91.3 kg Intake: Intake, IV Titration 800 Amount Dextrose 5%-0.45% NaCl 1, 800 000 ml @ 100 mls/hr IV . Q10H ARCELIA Rx#:[id number] Output: Urine 900 Other: Voiding Method Urinal - Exam General: non toxic, no distress, appears at stated age Derm: warm, dry Head: atraumatic, normocephalic, symmetric Eyes: EOMI, no lid lag, anicteric sclera Mouth: no lip lesion, mucus membranes moist Cardiovascular: S1S2 reg, no murmur, positive posterior tibial pulse bilateral, Lungs: CTA bilateral, no rhonchi, no rales , no accessory muscle use Abdominal: soft, nontender to palpation, no guarding, no appreciable organomegaly Ext: no gross muscle atrophy, no edema, no contractures Neuro: + facial droop, horse voice, moving all 4 extremities independently. Psych: Alert, oriented, appropriate affect - Labs CBC & Chem 7: 08/05/18 05:41 08/05/18 05:41 Labs: Abnormal Lab Results - Last 24 Hours (Table) 08/04/18 08/04/18 08/04/18 Range/Units 11:01 16:13 20:30 Glucose (74-99) mg/dL POC Glucose (mg/dL) 174 H 164 H 177 H (75-99) mg/dL 08/05/18 08/05/18 Range/Units 05:41 05:57 Glucose 177 H (74-99) mg/dL POC Glucose (mg/dL) 182 H (75-99) mg/dL Assessment and Plan Assessment: Acute brainstem CVA with dysphagia -Consult GI for PEG tube placement -Once able to take in supplementation will maintain Plavix, Lipitor, aspirin, and Procardia -Neurology recommendations -Plan is hopefully for inpatient rehab -PT/OT/speech recommendations Diabetes mellitus type 2 -Hemoglobin A1c 7.8 -Continue with insulin sliding scale -Plan will be due to resume metformin once PEG tube is placed -Follow blood sugars Essential Hypertension, mildly elevated -We'll resume home Procardia and start aggressive blood pressure lowering once PEG tube is in place DVT prophylaxis: Heparin Discussed with: Patient, family, and speech therapist Anticipated discharge: 24-[address]: home A total of 35 minutes was spent on the care of this complex patient more than 50 % of the time was spent in counseling and care coordination.
[2018-08-05 17:08] LABS: Glucose,Whole Blood 170 mg/dL (75-99)
[2018-08-05 20:44] LABS: Glucose,Whole Blood 184 mg/dL (75-99)
[2018-08-06 05:41] LABS: Glucose,Whole Blood 173 mg/dL (75-99)
[2018-08-06] MEDS: DEXTROSE 5%-0.45% NACL 1,000 ML IV SCH ×2 (05:50→08:49)
[2018-08-06] MEDS: INSULIN ASPART 100 UNIT/ML 1 ML 10 ML VIAL SQ SCH ×4 (05:50→21:10)
[2018-08-06 06:35] LABS: Basophils % (A) 0 %; Eosinophils # (A) 0.2 k/uL (0-0.7); Eosinophils % (A) 2 %; HCT 40.3 % (39.0-53.0); HGB 13.5 gm/dL (13.0-17.5); Lymphocytes # (A) 1.9 k/uL (1.0-4.8); Lymphocytes % (A) 22 %; MCH 30.6 pg (25.0-35.0); MCHC 33.4 g/dL (31.0-37.0); MCV 91.5 fL (80.0-100.0); Mean Platelet Volume 6.8; Monocytes # (A) 0.6 k/uL (0-1.0); Monocytes % (A) 7 %; Neutrophils # (A) 5.7 k/uL (1.3-7.7); Neutrophils % (A) 67 %; Platelet Count 317 k/uL (150-450); WBC 8.4 k/uL (3.8-10.6)
[2018-08-06 06:51] LABS: Anion Gap 11 mmol/L; Blood Urea Nitrogen 12 mg/dL (9-20); Calcium 9.1 mg/dL (8.4-10.2); Carbon Dioxide 21 mmol/L (22-30); Chloride 106 mmol/L (98-107); Glucose 183 mg/dL (74-99); Potassium 3.5 mmol/L (3.5-5.1); Sodium 138 mmol/L (137-145)
[2018-08-06] MEDS: ATORVASTATIN 80 MG TAB PO SCH (08:29)
[2018-08-06] MEDS: ASPIRIN 300 MG SUPP RECTAL SCH (08:48)
[2018-08-06] MEDS: HEPARIN SODIUM,PORCINE 5,000 UNIT/ML 1 ML VIAL SQ SCH ×2 (08:48→21:11)
[2018-08-06 11:28] LABS: Glucose,Whole Blood 171 mg/dL (75-99)
--- NOTE | 2018-08-06 14:25 | P.PN ---
Subjective Progress Note Date: 08/06/18 Principal diagnosis: dysphagia, muffled voice Patient is a 68-year-old male past medical history of diabetes mellitus and hypertension who presented to the ER with complaints of dysphasia, difficulty speaking, and uneven eyes. In the ER there was concern about stroke. He underwent a CTA of the head and neck which was unremarkable for any stenosis. CT of the brain was unremarkable. He was admitted for further monitoring. He was seen by speech therapy and failed his bedside swallow study. He was seen by neurology and had symptoms consistent with a brain stem stroke. They recommended restarting Lipitor and Plavix when he passed his swallow study. He was seen by Dr. Lara who will reassess him on 08/05 for possible admission to inpatient rehab. He was reassessed by speech therapy this morning and underwent barium swallow study which he failed. Recommendations are for PEG tube currently await GI evaluation. Patient seen and examined at bedside with his . Awaiting to see GI. Wants peg. no chest pain, SOB, or nausea. Objective - Vital Signs Vital signs: Vital Signs Temp 98.3 F 08/06/18 12:00 Pulse 90 08/06/18 12:00 Resp 18 08/06/18 12:00 BP 144/92 08/06/18 12:00 Pulse Ox 95 08/06/18 12:00 Intake & Output 08/05/18 08/06/18 08/06/18 18:59 06:59 18:59 Intake Total 800 Output Total 1591 639 5426 Balance -1200 250 -1200 Weight 91.3 kg 91.2 kg Intake: Intake, IV Titration 800 Amount Dextrose 5%-0.45% NaCl 1, 800 000 ml @ 100 mls/hr IV . Q10H ARCELIA Rx#:[id number] Output: Urine 0339 [id number] Other: Voiding Method Urinal Urinal # Voids 2 2 - Exam General: non toxic, no distress, appears at stated age Derm: warm, dry Head: atraumatic, normocephalic, symmetric Eyes: EOMI, no lid lag, anicteric sclera Mouth: no lip lesion, mucus membranes moist Cardiovascular: S1S2 reg, no murmur, positive posterior tibial pulse bilateral, Lungs: CTA bilateral, no rhonchi, no rales , no accessory muscle use Abdominal: soft, nontender to palpation, no guarding, no appreciable organomegaly Ext: no gross muscle atrophy, no edema, no contractures Neuro: + facial droop, horse voice, moving all 4 extremities independently. Psych: Alert, oriented, appropriate affect - Labs CBC & Chem 7: 08/06/18 05:20 08/06/18 05:20 Labs: Abnormal Lab Results - Last 24 Hours (Table) 08/05/18 08/05/18 08/06/18 Range/Units 16:41 20:41 05:20 Carbon Dioxide 21 L (22-30) mmol/L Glucose 183 H (74-99) mg/dL POC Glucose (mg/dL) 170 H 184 H (75-99) mg/dL 08/06/18 08/06/18 Range/Units 05:40 11:27 Carbon Dioxide (22-30) mmol/L Glucose (74-99) mg/dL POC Glucose (mg/dL) 173 H 171 H (75-99) mg/dL Assessment and Plan Assessment: Acute brainstem CVA with dysphagia -Await GI for PEG tube placement- has been multiple days without PO intake will need to start slow. -Once able to take in supplementation will maintain Plavix, Lipitor, aspirin, and Procardia -Neurology recommendations -Plan is hopefully for inpatient rehab -PT/OT/speech recommendations Diabetes mellitus type 2 -Hemoglobin A1c 7.8 -Continue with insulin sliding scale -Plan will be due to resume metformin once PEG tube is placed -Follow blood sugars Essential Hypertension, mildly elevated -We'll resume home Procardia and start aggressive blood pressure lowering once PEG tube is in place DVT prophylaxis: Heparin Discussed with: Patient Anticipated discharge: 24-[address]: home A total of 35 minutes was spent on the care of this complex patient more than 50 % of the time was spent in counseling and care coordination.
[2018-08-06 16:36] LABS: Glucose,Whole Blood 169 mg/dL (75-99)
[2018-08-06 20:44] LABS: Glucose,Whole Blood 166 mg/dL (75-99)
[2018-08-07] MEDS: DEXTROSE 5%-0.45% NACL 1,000 ML IV SCH ×3 (01:05→23:46)
[2018-08-07] MEDS ORDERED: MORPHINE SULFATE 2 MG/ML SYRINGE IVP STA (02:48)
[2018-08-07 06:08] LABS: Glucose,Whole Blood 210 mg/dL (75-99)
[2018-08-07] MEDS: INSULIN ASPART 100 UNIT/ML 1 ML 10 ML VIAL SQ SCH ×4 (06:27→21:59)
[2018-08-07 06:41] LABS: Anion Gap 10 mmol/L; Basophils % (A) 0 %; Blood Urea Nitrogen 12 mg/dL (9-20); Calcium 9.3 mg/dL (8.4-10.2); Carbon Dioxide 21 mmol/L (22-30); Chloride 106 mmol/L (98-107); Eosinophils % (A) 0 %; Glucose 217 mg/dL (74-99); HCT 38.5 % (39.0-53.0); HGB 13.3 gm/dL (13.0-17.5); Lymphocytes # (A) 1.4 k/uL (1.0-4.8); Lymphocytes % (A) 14 %; MCH 31.2 pg (25.0-35.0); MCHC 34.6 g/dL (31.0-37.0); MCV 90.1 fL (80.0-100.0); Mean Platelet Volume 6.4; Monocytes # (A) 0.8 k/uL (0-1.0); Monocytes % (A) 8 %; Neutrophils # (A) 7.6 k/uL (1.3-7.7); Neutrophils % (A) 77 %; Platelet Count 295 k/uL (150-450); Potassium 3.3 mmol/L (3.5-5.1); RBC 4.27 m/uL (4.30-5.90); RDW 12.9 % (11.5-15.5); Sodium 137 mmol/L (137-145); WBC 9.9 k/uL (3.8-10.6)
--- NOTE | 2018-08-07 07:04 | P.CONS ---
History of Present Illness - Reason for Consult Consult date: 08/06/18 Dysphagia Requesting physician: Lisbet Edward - Chief Complaint Difficulty speaking, uneven eyes - History of Present Illness The patient is a pleasant 68-year-old male who initially presented to the hospital with multiple complaints including difficulty speaking, difficulty swallowing and unable denies. The patient noticed his symptoms after waking up and decided to present to the hospital for further evaluation. Patient had extensive workup after presenting to the hospital including evaluation by the neurology service and an MRI with current diagnosis of a brainstem infarct. Since presentation the patient has had improvement of his symptoms, but has continued to have difficulty swallowing and has failed evaluation by speech pathology and with a barium swallow. A consult was placed to gastroenterology for evaluation for PEG tube placement. The patient denies any prior history of difficulty swallowing before his current hospitalization. He reports that his colonoscopy is up-to-date was performed one to 2 years ago. He denies any prior history of EGD. He denies any significant history of reflux disease or prior history of upper GI bleed. Review of Systems REVIEW OF SYSTEMS: CARDIO: Denies any chest pain or palpitations. PULMONARY: Denies any shortness of breath or wheezing. GENITOURINARY: No dysuria or hematuria. MUSCULOSKELETAL: No weakness reported. SKIN: Denies any new rashes or lesions, jaundice or pallor. PSYCHIATRIC: Denies any depression or anxiety. NEUROLOGY: Denies headache. EARS: No tinnitus, discharge or new hearing loss. NOSE: No discharge or congestion. EYES: No pain in eyes. CONSTITUTIONAL: No recent weight loss. No fever, chills, night sweats. Past Medical History Past Medical History: Diabetes Mellitus, Hyperlipidemia Additional Past Medical History / Comment(s): skin cancer with removal. pt is poor historian - no family with him. History of Any Multi-Drug Resistant Organisms: None Reported Additional Past Surgical History / Comment(s): cataract Past Anesthesia/Blood Transfusion Reactions: No Reported Reaction Additional Past Anesthesia/Blood Transfusion Reaction / Comm: pt states he has never had a blood transfusion or anesthesia Past Psychological History: No Psychological Hx Reported Smoking Status: Never smoker Past Alcohol Use History: None Reported Past Drug Use History: None Reported - Past Family History Father Family Medical History: CVA/TIA, Myocardial Infarction ([place]) Medications and Allergies Home Medications Medication Instructions Recorded Confirmed Type Atorvastatin [Lipitor] 20 mg PO DAILY 08/01/18 08/01/18 History Fenofibrate Nanocrystallized 145 mg PO DAILY 08/01/18 08/01/18 History [Fenofibrate] NIFEdipine [Procardia XL] 90 mg PO DAILY 08/01/18 08/01/18 History glipiZIDE [Glucotrol] 5 mg PO TID 08/01/18 08/01/18 History metFORMIN HCL ER [Glucophage Xr] 1,000 mg PO HS 08/01/18 08/01/18 History metFORMIN HCL ER [Glucophage Xr] 500 mg PO QAM 08/01/18 08/01/18 History Allergies Allergy/AdvReac Type Severity Reaction Status Date / Time No Known Allergies Allergy Verified 08/01/18 18:23 Physical Exam Vitals: Vital Signs Temp Pulse Resp BP Pulse Ox 08/06/18 20:00 98.6 F 87 16 164/89 96 08/06/18 16:00 98.4 F 70 18 164/102 95 08/06/18 12:00 98.3 F 90 18 144/92 95 08/06/18 08:00 99.1 F 87 18 158/97 95 08/06/18 03:42 97.6 F 79 18 158/89 95 Intake and Output 08/06/18 08/06/18 08/07/18 14:59 22:59 06:59 Output Total 1200 475 Balance -1200 -475 Output: Urine 1200 475 Other: Voiding Method Urinal Urinal # Voids 2 1 On physical examination, patient appears comfortable in no apparent distress. HEAD: Normocephalic, atraumatic. EYES: No scleral icterus. No conjunctival injection. MOUTH: No lesions, tongue midline. NECK: Trachea midline, no gross abnormalities. CHEST: Clear to auscultation with no wheezing or rhonchi appreciated. HEART: Regular rate and rhythm. ABDOMEN: Soft, obese. Bowel sounds are positive. No organomegaly. No guarding or rigidity. EXTREMITIES: No pedal edema. SKIN: No rashes, no jaundice. NEUROLOGIC: Alert and oriented x3. Results CBC & Chem 7: 08/07/18 06:08 08/07/18 06:08 Labs: Abnormal Lab Results - Last 24 Hours (Table) 08/06/18 08/06/18 08/06/18 Range/Units 05:20 05:40 11:27 Carbon Dioxide 21 L (22-30) mmol/L Glucose 183 H (74-99) mg/dL POC Glucose (mg/dL) 173 H 171 H (75-99) mg/dL 08/06/18 08/06/18 Range/Units 16:35 20:42 Carbon Dioxide (22-30) mmol/L Glucose (74-99) mg/dL POC Glucose (mg/dL) 169 H 166 H (75-99) mg/dL Assessment and Plan (1) Dysphagia Current Visit: Yes Status: Acute Code(s): R13.10 - DYSPHAGIA, UNSPECIFIED SNOMED Code(s): 42749184 (2) Cerebrovascular accident Current Visit: Yes Status: Acute Code(s): I63.9 - CEREBRAL INFARCTION, UNSPECIFIED SNOMED Code(s): 241157692 Plan: Supportive care Nothing by mouth Results from barium swallow reviewed Plan on EGD with PEG tube placement Further recommendations to follow procedure Thank you for allowing us to participate in the care of this patient we will continue to follow
[2018-08-07] MEDS ORDERED: ceFAZolin IN SWFI 2 GM/20 ML SYRINGE IVP ONE (07:30)
--- NOTE | 2018-08-07 08:23 | XR ---
EXAMINATION TYPE: XR chest 2V DATE OF EXAM: 08/07/2018 COMPARISON: Chest x-ray from 6 days ago. HISTORY: Pneumonia. TECHNIQUE: Frontal and lateral views of the chest are obtained. FINDINGS: There is no focal air space opacity, pleural effusion, or pneumothorax seen. The cardiac silhouette size is within normal limits with ectatic thoracic aorta. Overlying EKG leads are seen. T he osseous structures are intact. IMPRESSION: No suspicious acute infiltrate. No significant change from prior.
[2018-08-07] MEDS: ATORVASTATIN 80 MG TAB PO SCH (08:42)
[2018-08-07] MEDS: ASPIRIN 300 MG SUPP RECTAL SCH (08:48)
[2018-08-07] MEDS: HEPARIN SODIUM,PORCINE 5,000 UNIT/ML 1 ML VIAL SQ SCH (08:48)
--- NOTE | 2018-08-07 09:50 | XR ---
EXAMINATION TYPE: XR wrist complete LT DATE OF EXAM: 08/07/2018 CLINICAL HISTORY: Pain swelling and warmth. TECHNIQUE: Frontal, lateral , scaphoid, and oblique images of the left wrist are obtained. COMPARISON: None FINDINGS: There is no acute fracture/dislocation evident in the left wrist. There is radiocarpal jayson nt space loss. There are small ossifications distal to the ulnar styloid and along the proximal carp al row. There is subchondral cystic change distal radius and adjacent lunate. There is severe spurrin g and moderate narrowing base of first metacarpal. Mild diffuse soft tissue swelling is seen best on lateral view. IMPRESSION: As above.
--- NOTE | 2018-08-07 11:02 | US ---
EXAMINATION TYPE: US venous doppler duplex LE LT DATE OF EXAM: 08/07/2018 10:07 AM COMPARISON: NONE CLINICAL HISTORY: pain, swelling, warmth, DVT. left ankle redness and swelling SIDE PERFORMED: Left TECHNIQUE: The lower extremity deep venous system is examined utilizing real time linear array sonog jaime with graded compression, doppler sonography and color-flow sonography. VESSELS IMAGED: External Iliac Vein (EIV) Common Femoral Vein Deep Femoral Vein Greater Saphenous Vein * Femoral Vein Popliteal Vein Small Saphenous Vein * Proximal Calf Veins (* superficial vessels) Left Leg: Appears to have internal thrombus at level of deep femoral vein at CFV junction, area is n ot fully compressible, rouleaux flow seen at left EIV and CFV Grayscale, color doppler, spectral doppler imaging performed of the deep veins of the left lower extr emity. Visualized left external iliac vein show satisfactory color flow. The left common femoral vein and gr oin level shows expansion with hyperechoic material in diminished color flow consistent with acute th rombus at this level extension into the profunda femoris is present. Superficial femoral vein show sa tisfactory color flow into popliteal vein with compressibility. IMPRESSION: Acute DVT in the left groin involving common femoral and deep femoral veins. A Thayer level critical message alert has been initiated for Alicia Millard via the [employer] Critical Results System on 08/07/2018 10:59 AM. This message alert has been sent to Alicia Millard vi a the preferences provided by the clinician for the receipt of Radiology Critical Findings. Message I D [id number].
--- NOTE | 2018-08-07 11:03 | US ---
EXAMINATION TYPE: US venous doppler duplex UE LT DATE OF EXAM: 08/07/2018 COMPARISON: NONE CLINICAL HISTORY: pain, swelling, warmth, DVT. Recent IV at wrist SIDE PERFORMED: Left Left Arm: Appears negative for venous thrombosis Grayscale, color doppler, spectral doppler imaging performed of the deep veins of the left upper extr emities. There is normal flow, compressibility and vascular waveforms. IMPRESSION: No ultrasound evidence for acute deep or superficial venous thrombosis in the left upper extremity.
[2018-08-07 11:35] LABS: Glucose,Whole Blood 186 mg/dL (75-99)
[2018-08-07 11:40] LABS: Appearance,Urine Clear (Clear); Bilirubin,Urine Negative (Negative); Blood,Urine Negative (Negative); Color,Urine Yellow; Glucose,Urine (UA) 1+ (Negative); Ketones,Urine Negative (Negative); Leukocyte Esterase,Urine Negative (Negative); Nitrite,Urine Negative (Negative); PH, Urine 5.5 (5.0-8.0); Protein,Urine Negative (Negative); Specific Gravity,Urine 1.015 (1.001-1.035); Urobilinogen,Urine <2.0 mg/dL (<2.0)
[2018-08-07] MEDS ORDERED: POTASSIUM CHLORIDE 20 MEQ in WATER FOR INJECTION 1 100ML.BAG IVPB STA (11:49)
--- NOTE | 2018-08-07 11:51 | P.PN ---
Subjective Progress Note Date: 08/07/18 (delayed charting patient seen at 0900) Principal diagnosis: dysphagia, muffled voice Patient is a 68-year-old male past medical history of diabetes mellitus and hypertension who presented to the ER with complaints of dysphasia, difficulty speaking, and uneven eyes. In the ER there was concern about stroke. He underwent a CTA of the head and neck which was unremarkable for any stenosis. CT of the brain was unremarkable. He was admitted for further monitoring. He was seen by speech therapy and failed his bedside swallow study. He was seen by neurology and had symptoms consistent with a brain stem stroke. They recommended restarting Lipitor and Plavix when he passed his swallow study. He was seen by Dr. Valente who will reassess him on 08/05 for possible admission to inpatient rehab. He was reassessed by speech therapy this morning and underwent barium swallow study which he failed. Recommendations are for PEG tube and plan is for peg today. Developed fevers overnight on 08/07 with pain in left wrist. Patient seen and examined at bedside. Started developing pain in his left wrist and left ankle afterwards no therapy yesterday. Does have some swelling in his left wrist as well. Pain with movement. Slight swelling and warmth over that area. Some pain with movement of left ankle. No nausea, vomiting, chest pain, or shortness of breath. He has not had a persistent cough. Objective - Vital Signs Vital signs: Vital Signs Temp 100.8 F H 08/07/18 08:00 Pulse 91 08/07/18 08:00 Resp 18 08/07/18 08:00 BP 159/89 08/07/18 08:00 Pulse Ox 92 L 08/07/18 08:00 Intake & Output 08/06/18 08/07/18 08/07/18 18:59 06:59 18:59 Intake Total 1000 300 Output Total 1475 400 150 Balance -1475 600 150 Weight 91.4 kg Intake: Intake, IV Titration 1000 300 Amount Dextrose 5%-0.45% NaCl 1, 1000 300 000 ml @ 100 mls/hr IV . Q10H [facility]CELIA Rx#:[id number] Oral 0 Output: Urine 1475 400 150 Other: Voiding Method Urinal Urinal Urinal # Voids 2 0 - Exam General: non toxic, no distress, appears at stated age Derm: warm, dry Head: atraumatic, normocephalic, symmetric Eyes: EOMI, no lid lag, anicteric sclera Mouth: no lip lesion, mucus membranes moist Cardiovascular: S1S2 reg, no murmur, positive posterior tibial pulse bilateral, Lungs: CTA bilateral, no rhonchi, no rales , no accessory muscle use Abdominal: soft, nontender to palpation, no guarding, no appreciable organomegaly Ext: no gross muscle atrophy left proximal wrist dorsal side with warmth, swelling, and erythema, left ankle with redness and the medial malleolus no warmth or swelling. Negative Asaf , no contractures Neuro: + facial droop, horse voice, moving all 4 extremities independently. Psych: Alert, oriented, appropriate affect - Labs CBC & Chem 7: 08/07/18 06:08 08/07/18 06:08 Labs: Abnormal Lab Results - Last 24 Hours (Table) 08/06/18 08/06/18 08/06/18 Range/Units 11:27 16:35 20:42 RBC (4.30-5.90) m/uL Hct (39.0-53.0) % Potassium (3.5-5.1) mmol/L Carbon Dioxide (22-30) mmol/L Glucose (74-99) mg/dL POC Glucose (mg/dL) 171 H 169 H 166 H (75-99) mg/dL 08/07/18 08/07/18 08/07/18 Range/Units 06:07 06:08 06:08 RBC 4.27 L (4.30-5.90) m/uL Hct 38.5 L (39.0-53.0) % Potassium 3.3 L (3.5-5.1) mmol/L Carbon Dioxide 21 L (22-30) mmol/L Glucose 217 H (74-99) mg/dL POC Glucose (mg/dL) 210 H (75-99) mg/dL Assessment and Plan Assessment: Acute brainstem CVA with dysphagia - PEG tube placement 08/07- has been multiple days without PO intake will need to start slow. -Once able to take in supplementation will maintain Plavix, Lipitor, aspirin, and Procardia -Neurology recommendations -Plan is hopefully for inpatient rehab -PT/OT/speech recommendations Acute left lower extremity DVT - Xarelto starting tomorrow per GI with PEG today. In the mean time to decrease risk of PE will maintain absolute bed rest with SCD to Right Low extremity only. d/w GI service - will check insurnance coverage Diabetes mellitus type 2 -Hemoglobin A1c 7.8 -Continue with insulin sliding scale -Plan will be due to resume metformin once PEG tube is placed -Follow blood sugars Essential Hypertension, mildly elevated -Resume home Procardia and start aggressive blood pressure lowering once PEG tube is in place DVT prophylaxis: Heparin Discussed with: Patient, nursing, Nahomy Sheikh Anticipated discharge: 24-[address]: home A total of 30 minutes was spent on the care of this complex patient more than 50 % of the time was spent in counseling and care coordination.
[2018-08-07] MEDS ORDERED: PROPOFOL 10 MG/ML 20 ML VIAL IV ONE (12:53)
[2018-08-07] MEDS ORDERED: IV FLUID CONTINUATION 1,000 ML IV ONE (12:53)
--- NOTE | 2018-08-07 14:25 | P.PCN ---
Date of Procedure: 08/07/18 Description of Procedure: Brief history: The patient is a pleasant 68-year-old male who initially presented to the hospital with multiple complaints including difficulty speaking, difficulty swallowing and unable denies. The patient noticed his symptoms after waking up and decided to present to the hospital for further evaluation. Patient had extensive workup after presenting to the hospital including evaluation by the neurology service and an MRI with current diagnosis of a brainstem infarct. Since presentation the patient has had improvement of his symptoms, but has continued to have difficulty swallowing and has failed evaluation by speech pathology and with a barium swallow. A consult was placed to gastroenterology for evaluation for PEG tube placement. The patient denies any prior history of difficulty swallowing before his current hospitalization. He reports that his colonoscopy is up-to-date was performed one to 2 years ago. He denies any prior history of EGD. He denies any significant history of reflux disease or prior history of upper GI bleed. Procedure performed: EGD with PEG tube placement Preoperative diagnosis: Oropharyngeal dysphagia, history of CVA IV sedation by anesthesia Estimated blood loss: Minimal. Procedure: After informed consent was obtained with the patient as well as the family the patient was brought into the endoscopy unit. IV conscious sedation was administered by anesthesia under continuous monitoring. The Olympus GF 190 video endoscope was inserted into the mouth and esophagus intubated without any difficulty and was gradually advanced to the stomach and duodenum. The bulb and second part of the duodenum was visualized which appeared normal. The scope at this time was withdrawn to the stomach adequately insufflated with air. Adequate transillumination was achieved onto the anterior abdominal wall. At the site of adequate transillumination and maximal finger indentation, on the anterior abdominal wall, this area was sterilely prepped and draped. One percent Lidocaine was infiltrated into the skin and a small incision was made. Trocar and cannula was passed through the incision into the stomach cavity. The trocar was removed. The insertion wire was passed through the cannula into the stomach. Insertion wire was snared and then the insertion wire, snare and endoscope were withdrawn from the mouth. The insertion wire was then attached to a 20-[employer] PEG tube. The insertion wire was then pulled with the PEG tube through the incision site. PEG tube was pulled until the internal bolster was sitting snugly against the gastric mucosa which was confirmed with repeat EGD. On repeat EGD the esophagus was intubated without any difficulty and was advanced into the stomach. The internal bumper appeared to be in secure position. The visualized portions of the antrum body cardia and fundus of the stomach appeared normal. The esophagus was carefully examined as the scope was gradually being withdrawn which appeared normal. At this time external bumper was placed on the PEG tube closer to the anterior abdominal wall at 2 cm jarrell. The patient tolerated the procedure well. Impression: Successful 20[employer] PEG tube placement as described above. Recommendations: Findings of this examination were discussed with the patient. Okay for pills through PEG tube today. The patient can be started on tube feeds tomorrow. Post -PEG tube orders were written. Okay to start anticoagulation tomorrow. Bumper will be loosened on PEG tube tomorrow.
[2018-08-07 16:24] LABS: Glucose,Whole Blood 174 mg/dL (75-99)
[2018-08-07] MEDS ORDERED: HYDROcodone/APAP 5-325MG 1 EACH TAB PO PRN (16:59)
[2018-08-07] MEDS ORDERED: methylPREDNISolone SOD SUCCI 125 MG/2 ML VIAL IV STA (17:10)
[2018-08-07 20:40] LABS: Glucose,Whole Blood 236 mg/dL (75-99)
[2018-08-07] MEDS ORDERED: HEPARIN SODIUM,PORCINE 5,000 UNIT/ML 1 ML VIAL SQ SCH (21:00)
[2018-08-07 23:54] LABS: Glucose,Whole Blood 261 mg/dL (75-99)
[2018-08-08 06:05] LABS: HCT 38.1 % (39.0-53.0); HGB 12.8 gm/dL (13.0-17.5); MCH 30.6 pg (25.0-35.0); MCHC 33.5 g/dL (31.0-37.0); MCV 91.2 fL (80.0-100.0); Mean Platelet Volume 7.1; Platelet Count 341 k/uL (150-450); RBC 4.18 m/uL (4.30-5.90); RDW 13.1 % (11.5-15.5); WBC 11.9 k/uL (3.8-10.6)
[2018-08-08 06:16] LABS: Anion Gap 11 mmol/L; Blood Urea Nitrogen 14 mg/dL (9-20); Calcium 9.2 mg/dL (8.4-10.2); Carbon Dioxide 22 mmol/L (22-30); Chloride 104 mmol/L (98-107); Glucose 260 mg/dL (74-99); Magnesium 1.9 mg/dL (1.6-2.3); Phosphorus 2.7 mg/dL (2.5-4.5); Potassium 3.5 mmol/L (3.5-5.1); Sodium 137 mmol/L (137-145)
[2018-08-08 06:33] LABS: Glucose,Whole Blood 249 mg/dL (75-99)
[2018-08-08] MEDS: INSULIN ASPART 100 UNIT/ML 1 ML 10 ML VIAL SQ SCH ×4 (06:57→21:28)
[2018-08-08] MEDS ORDERED: BENZOCAINE/MENTHOL LOZENG 1 EACH LOZENGE MUCOUS MEM PRN (07:50)
[2018-08-08] MEDS ORDERED: HYDROcodone/APAP 15 ML SOLUTION PEG/G-TUBE PRN (07:52)
--- NOTE | 2018-08-08 08:49 | P.PN ---
Subjective Progress Note Date: 08/08/18 Principal diagnosis: dysphagia, muffled voice Patient is a 68-year-old male past medical history of diabetes mellitus and hypertension who presented to the ER with complaints of dysphasia, difficulty speaking, and uneven eyes. In the ER there was concern about stroke. He underwent a CTA of the head and neck which was unremarkable for any stenosis. CT of the brain was unremarkable. He was admitted for further monitoring. He was seen by speech therapy and failed his bedside swallow study. He was seen by neurology and had symptoms consistent with a brain stem stroke. They recommended restarting Lipitor and Plavix when he passed his swallow study. He was seen by Dr. Valente who will reassess him on 08/05 for possible admission to inpatient rehab. He was reassessed by speech therapy this morning and underwent barium swallow study which he failed. He developed left wrist pain and on 08/07 x-ray was completed which showed arthritis. He was given a dose of Solu-Medrol with great improvement. He underwent PEG tube placement on 08/07 without any immediate complications. He was found to have a left lower extremity deep DVT and will be started on Xarelto 08/08. Patient seen and examined at bedside. Had difficulty clearing secretions overnight. Having copious oral secretions. He has been able to cough and spit them on he is now starting been getting a sore throat and pain secondary to coughing. He denies any nausea or vomiting. He states his secretions increased after PEG tube was placed yesterday. No diarrhea or constipation. Wrist pain and ankle pain are much improved after dose of Solu-Medrol yesterday. No chest pain or shortness of breath. Discussed in detail diagnosis of deep vein thrombosis and arthritis flare. Plan will be tentatively for transfer to inpatient rehab tomorrow should he be able to tolerate tube feeds and there are no immediate complications. Objective - Vital Signs Vital signs: Vital Signs Temp 97.6 F 08/08/18 04:00 Pulse 88 08/08/18 04:00 Resp 18 08/08/18 04:00 BP 160/96 08/08/18 04:00 Pulse Ox 94 L 08/08/18 04:00 Intake & Output 08/07/18 08/08/18 08/08/18 18:59 06:59 18:59 Intake Total 500 Output Total 350 375 Balance 150 -375 Weight 96 kg Intake: IV 200 Intake, IV Titration 300 Amount Dextrose 5%-0.45% NaCl 1, 300 000 ml @ 100 mls/hr IV . Q10H [facility] Rx#:[id number] Output: Urine 350 375 Other: Voiding Method Urinal Urinal # Voids 2 1 # Bowel Movements 0 - Exam General: non toxic, mild distress due to secretions, appears at stated age Derm: warm, dry Head: atraumatic, normocephalic, symmetric Eyes: EOMI, no lid lag, anicteric sclera Mouth: no lip lesion, mucus membranes moist Cardiovascular: S1S2 reg, no murmur, positive posterior tibial pulse bilateral, Lungs: decrased be bilateral, no rhonchi, no rales , no accessory muscle use Abdominal: soft, nontender to palpation, no guarding, no appreciable organomegaly Ext: no gross muscle atrophy, left proximal wrist dorsal side with great improvement in warmth, swelling, and erythema, no contractures Neuro: + facial droop, horse voice, moving all 4 extremities independently. Psych: Alert, oriented, appropriate affect - Labs CBC & Chem 7: 08/08/18 05:16 08/08/18 05:16 Labs: Abnormal Lab Results - Last 24 Hours (Table) 08/07/18 08/07/18 08/07/18 Range/Units 09:07 11:33 16:23 WBC (3.8-10.6) k/uL RBC (4.30-5.90) m/uL Hgb (13.0-17.5) gm/dL Hct (39.0-53.0) % Glucose (74-99) mg/dL POC Glucose (mg/dL) 186 H 174 H (75-99) mg/dL Urine Glucose (UA) 1+ H (Negative) 08/07/18 08/07/18 08/08/18 Range/Units 20:38 23:52 05:16 WBC 11.9 H (3.8-10.6) k/uL RBC 4.18 L (4.30-5.90) m/uL Hgb 12.8 L (13.0-17.5) gm/dL Hct 38.1 L (39.0-53.0) % Glucose (74-99) mg/dL POC Glucose (mg/dL) 236 H 261 H (75-99) mg/dL Urine Glucose (UA) (Negative) 08/08/18 08/08/18 Range/Units 05:16 06:32 WBC (3.8-10.6) k/uL RBC (4.30-5.90) m/uL Hgb (13.0-17.5) gm/dL Hct (39.0-53.0) % Glucose 260 H (74-99) mg/dL POC Glucose (mg/dL) 249 H (75-99) mg/dL Urine Glucose (UA) (Negative) Assessment and Plan Assessment: Acute brainstem CVA with dysphagia - PEG tube placement 08/07- start PO supplementation today -change ASA to per peg, hold off on plavix with need for xarelto today and PEG yesterday, lipitor -Neurology recommendations -Plan is hopefully for inpatient rehab 08/09 -PT/OT/speech recommendations Acute left lower extremity DVT - Xarelto today as can crush, is >$100 monthly will check eliquis cost Copous oral secretions - start scopolamine patch - oral suction to bedside acute arthritis flair left wrist - prednisone 5 mg daily X 4 more days - xray without fracture - good response to solumedrol Diabetes mellitus type 2 -Hemoglobin A1c 7.8 -Continue with insulin sliding scale -Follow blood sugars - once tube feeds at goal restart metformin Essential Hypertension, mildly elevated - was on procardia xL at home cannot be crushed with stroke and DM will start lisinopril via peg DVT prophylaxis: Heparin Discussed with: Patient, nursing, Anticipated discharge: 24-[address]: inpatient rehab A total of 35 minutes was spent on the care of this complex patient more than 50 % of the time was spent in counseling and care coordination.
[2018-08-08] MEDS: ASPIRIN 325 MG TAB PEG/G-TUBE SCH (09:54)
[2018-08-08] MEDS: SCOPOLAMINE 1.5MG/72HR PATCH TRANSDERM SCH (09:54)
[2018-08-08] MEDS: LISINOPRIL 10 MG TAB PEG/G-TUBE SCH (09:54)
[2018-08-08] MEDS: prednisoLONE ORAL SOLUTION 15MG/5ML CUP PEG/G-TUBE SCH (09:54)
[2018-08-08] MEDS: ATORVASTATIN 80 MG TAB PEG/G-TUBE SCH (09:54)
[2018-08-08] MEDS: RIVAROXABAN 15 MG TAB PO SCH ×2 (11:08→17:02)
[2018-08-08 11:49] LABS: Glucose,Whole Blood 187 mg/dL (75-99)
--- NOTE | 2018-08-08 14:21 | P.PN ---
Subjective Progress Note Date: 08/08/18 Principal diagnosis: Dysphagia Status post PEG insertion. Presently without complaints. Tolerating tube feeds at 20 mL an hour. No emesis. Acute left lower DVT per ultrasound. Anticoagulation started. Hemoglobin 12.8. White count 11.9. Objective - Vital Signs Vital signs: Vital Signs Temp 98.4 F 08/08/18 12:00 Pulse 95 08/08/18 12:00 Resp 18 08/08/18 12:00 BP 157/89 08/08/18 12:00 Pulse Ox 93 L 08/08/18 12:00 Intake & Output 08/07/18 08/08/18 08/08/18 18:59 06:59 18:59 Intake Total 500 Output Total 350 375 Balance 150 -375 Weight 96 kg 96 kg Intake: IV 200 Intake, IV Titration 300 Amount Dextrose 5%-0.45% NaCl 1, 300 000 ml @ 100 mls/hr IV . Q10H [facility] Rx#:[id number] Output: Urine 350 375 Other: Voiding Method Urinal Urinal # Voids 2 1 # Bowel Movements 0 - Exam General appearance: The patient is alert, oriented, in no acute distress. Speech is somewhat slurred but understandable. HET: Head is normocephalic and atraumatic. Pupils are equal and reactive. Oropharynx is clear without lesions. Neck: Supple without lymphadenopathy. Trachea midline. Heart: S1 S2. Regular rate and rhythm. Lungs: No crackles or wheezes are heard. Abdomen: Soft, nontender, nondistended with bowel sounds. PEG tube without bleeding intact tube feeds confusing. No peritoneal signs. No palpable organomegaly or masses. - Labs CBC & Chem 7: 08/08/18 05:16 08/08/18 05:16 Labs: Abnormal Lab Results - Last 24 Hours (Table) 08/07/18 08/07/18 08/07/18 Range/Units 16:23 20:38 23:52 WBC (3.8-10.6) k/uL RBC (4.30-5.90) m/uL Hgb (13.0-17.5) gm/dL Hct (39.0-53.0) % Glucose (74-99) mg/dL POC Glucose (mg/dL) 174 H 236 H 261 H (75-99) mg/dL 08/08/18 08/08/18 08/08/18 Range/Units 05:16 05:16 06:32 WBC 11.9 H (3.8-10.6) k/uL RBC 4.18 L (4.30-5.90) m/uL Hgb 12.8 L (13.0-17.5) gm/dL Hct 38.1 L (39.0-53.0) % Glucose 260 H (74-99) mg/dL POC Glucose (mg/dL) 249 H (75-99) mg/dL 08/08/18 Range/Units 11:47 WBC (3.8-10.6) k/uL RBC (4.30-5.90) m/uL Hgb (13.0-17.5) gm/dL Hct (39.0-53.0) % Glucose (74-99) mg/dL POC Glucose (mg/dL) 187 H (75-99) mg/dL Assessment and Plan (1) Dysphagia Narrative/Plan: Status post PEG tube insertion Current Visit: Yes Status: Acute Code(s): R13.10 - DYSPHAGIA, UNSPECIFIED SNOMED Code(s): 71872050 (2) Deep vein thrombosis (DVT) of left lower extremity Current Visit: Yes Status: Acute Code(s): I82.402 - ACUTE EMBOLISM AND THOMBOS UNSP DEEP VEINS OF L LOW EXTREM SNOMED Code(s): 102511101 (3) Cerebrovascular accident Current Visit: Yes Status: Acute Code(s): I63.9 - CEREBRAL INFARCTION, UNSPECIFIED SNOMED Code(s): 708398008 Plan: 1. Continue with tube feeds increase rate to desired goal. 2. Anticoagulation for left lower extremity DVT. Continue GI prophylaxis. We' ll follow as needed. Assessment and plan a care discussed with Dr. Solis
--- NOTE | 2018-08-08 15:30 | XR ---
EXAMINATION TYPE: XR chest 1V portable DATE OF EXAM: 08/08/2018 HISTORY: Shortness of breath. COMPARISON: 08/07/2018 TECHNIQUE: Single view of the chest is submitted. FINDINGS: Demonstrated are scattered senescent parenchymal change. There is no evidence for focal infiltrate. The heart is stable. Hilar and mediastinal structures are within normal limits. Degenerative changes are seen of the dorsal spine. IMPRESSION: 1. Chronic changes without evidence for acute pulmonary disease.
[2018-08-08 16:49] LABS: Glucose,Whole Blood 177 mg/dL (75-99)
[2018-08-08 20:24] LABS: Glucose,Whole Blood 189 mg/dL (75-99)
[2018-08-08] MEDS ORDERED: IPRATROPIUM-ALBUTEROL 3 ML NEB INHALATION STA (20:44)
[2018-08-08] MEDS ORDERED: ACETYLCYSTEINE 800 MG/4 ML VIAL INHALATION STA (21:47)
[2018-08-08 21:54] LABS: ABG Base Excess 1.7 mmol/L; ABG HCO3 25 mmol/L (21-25); ABG PCO2 33 mmHg (35-45); ABG PH 7.49 (7.35-7.45); ABG TCO2 26 mmol/L (19-24)
[2018-08-08 21:57] LABS: ABG PO2 49 mmHg (83-108)
--- NOTE | 2018-08-08 22:16 | P.PN ---
Progress Note - Text Progress Note Date: 08/08/18 Notified by nursing the patient desaturations down to the mid 80s on 2 L requiring increasing oxygen requirements. Patient also seems confused, has been febrile with T-max of 101. earlier today her progress notes. It appears the patient has been having trouble with tolerating secretions. Patient currently on PEG tube with very minimal residuals of approximately 20 cc. Exam: confused, Mild respiratory distress, tachypneic, diminished in the bases with coarse breath sounds diffusely. Coughing up secretions that appeared pringle colored on 6 L nasal cannula with sats at 86% a/p Briefly this is a 68 -year-old male here with acute brainstem CVA with resultant dysphagia s/p PEG tube placement Acute respiratory failure with hypoxia * ddx aspiration pneumonia vs mucus plugging vs possible PE in the setting of LLE DVT (on Xarelto) * Patient febrile with leukocytosis earlier today patient started on Zosyn * Initiated breathing treatments, inhaled Mucomyst, chest x-ray, ABG suggesting significant hypoxemia 7.49/33/49 * hold Tube feeds, Increased patient to nonrebreather We'll consult pulmonary for further recommendations * Will discuss need for possible transfer to the ICU for closer monitoring
[2018-08-08 23:07] LABS: Glucose,Whole Blood 187 mg/dL (75-99)
[2018-08-08] MEDS ORDERED: LORazepam 2 MG/ML INJ IV PRN (23:50)
[2018-08-09] MEDS: IPRATROPIUM-ALBUTEROL 3 ML NEB INHALATION SCH ×7 (00:13→23:05)
--- NOTE | 2018-08-09 00:27 | XR ---
EXAMINATION TYPE: XR chest 2V DATE OF EXAM: 08/08/2018 COMPARISON: Today HISTORY: Hypoxemia TECHNIQUE: Frontal and lateral views of the chest are obtained. FINDINGS: There is no heart failure. Heart size is normal. There are chest leads. There is a small i nfiltrate medial right lower lobe improved compared to exam earlier today. There is no pleural effusi on. IMPRESSION: Improvement in right lower lobe infiltrate and atelectasis compared to earlier exam.
[2018-08-09] MEDS: PIPERACILLIN-TAZOBACTAM 3.375 GM in SODIUM CHLORIDE 0.9% 100 ML IVPB SCH ×3 (00:35→15:54)
[2018-08-09] MEDS: ACETAMINOPHEN SUPPOSITORY 650 MG SUPP RECTAL PRN (03:53)
[2018-08-09 05:22] LABS: Calcium 9.1 mg/dL (8.4-10.2); Magnesium 1.8 mg/dL (1.6-2.3); Phosphorus 3.3 mg/dL (2.5-4.5); Potassium 3.4 mmol/L (3.5-5.1)
[2018-08-09] MEDS ORDERED: Potassium Replacement Protocol 1 EACH MISC MISCELLANE PRN ×2 (05:30→15:56)
[2018-08-09] MEDS ORDERED: Magnesium Replacement Protocol 1 EACH MISC MISCELLANE PRN (05:30)
[2018-08-09 06:43] LABS: Glucose,Whole Blood 254 mg/dL (75-99)
[2018-08-09] MEDS: POTASSIUM BICARBONATE/CIT AC 20 MEQ TABLET.EFF NG-TUBE SCH ×3 (06:50→23:38)
[2018-08-09] MEDS: MAGNESIUM SULFATE-D5W PMX 1 GM in DEXTROSE/WATER 1 100ML.BAG IVPB SCH ×2 (06:51→08:18)
[2018-08-09] MEDS: INSULIN ASPART 100 UNIT/ML 1 ML 10 ML VIAL SQ SCH ×4 (06:51→22:02)
[2018-08-09] MEDS ORDERED: ALBUTEROL NEBULIZED 1.25 MG/3 ML INHALATION SCH (08:00)
--- NOTE | 2018-08-09 09:01 | XR ---
EXAMINATION TYPE: XR chest 1V portable DATE OF EXAM: 08/09/2018 COMPARISON: 08/08/2018 HISTORY: Aspiration pneumonia. TECHNIQUE: Single frontal view of the chest is obtained. FINDINGS: Persistent hazy right infrahilar opacity is similar to the prior. Linear horizontal left b asilar atelectasis is seen at the costophrenic angle. Heart is enlarged. No pneumothorax or sizable p leural effusion. Osseous structures appear intact. IMPRESSION: Similar-appearing right infrahilar opacity suspicious for pneumonia in this patient with aspiration and unchanged left basilar subsegmental atelectasis.
[2018-08-09] MEDS: LISINOPRIL 10 MG TAB PEG/G-TUBE SCH (09:10)
[2018-08-09] MEDS: ATORVASTATIN 80 MG TAB PEG/G-TUBE SCH (09:10)
[2018-08-09] MEDS: RIVAROXABAN 15 MG TAB PO SCH ×2 (09:10→16:48)
[2018-08-09] MEDS: ASPIRIN 325 MG TAB PEG/G-TUBE SCH (09:10)
[2018-08-09] MEDS: prednisoLONE ORAL SOLUTION 15MG/5ML CUP PEG/G-TUBE SCH (09:11)
[2018-08-09] MEDS ORDERED: LORazepam 2 MG/ML INJ IV PRN (09:32)
--- NOTE | 2018-08-09 09:34 | P.PN ---
Subjective Progress Note Date: 08/09/18 The patient is a 68 yo F with a PMH of DM and HTN who was admitted for suspected CVA. The CTA and CT head were unremarkable. The patient was evaluate dby Neurology and believed to have a brain-stem CVA. He failed swallow evaluations and had a PEG inserted on 08/07. He was subsequently found to have a LLE DVT and was started on Xarelto. Overnight, the patient was noted to be in respiratory distress and hypoxic. Upon suctioning, tube feed color and consistency material was retrieved. The patient was placed on supplemental oxygen, started on Zosyn empirically, and transferred to MICU. The patient was seen and examined at the bedside in the MICU on 08/09/18 at 0800. He was saturating 94-95% on non-rebreather mask with HR 102, T 101.2 and BP 130/70. His was at the bedside. Discussed with her the high suspicion of aspiration. The patient was agitated and only following basic commands, unable to provide any complaints. Objective - Vital Signs Vital signs: Vital Signs Temp 102.6 F H 08/09/18 04:00 Pulse 103 H 08/09/18 07:00 Resp 34 H 08/09/18 07:00 BP 131/72 08/09/18 07:00 Pulse Ox 95 08/09/18 07:00 Intake & Output 08/08/18 08/09/18 08/09/18 18:59 06:59 18:59 Intake Total 100 210 Output Total 775 6430 170 Balance -675 -6220 -170 Weight 96 kg 93.6 kg Intake: IV 120 Invasive Line 3 20 Piperacillin-Tazobactam 3 100 .375 gm In Sodium Chloride 0.9% 100 ml @ 25 mls/hr IVPB Q8HR [facility] Rx# :[id number] Tube Feeding 100 90 Output: Urine 775 6430 170 Uretheral (Mann) 4000 Other: Voiding Method Indwelling Catheter # Voids 2 0 # Bowel Movements 1 - Exam General: Non-toxic, in mild respiratory distress, on non-rebreather mask, appears stated age HEENT: NC/AT, anicteric sclerae, moist conjunctiva, no lid-lag, PERRLA Cardiovascular: S1/S2 wnl, no murmurs, rubs, or gallops, tachycardic Lungs: Bibasilar coarse breath sounds, with R basilar rales, no wheezing appreciated, tachypnic, no accessory muscle use Abdominal: Soft, nontender, non-distended, no guarding, rebound, or rigidity Skin: Warm, dry Extremities: No edema or contractures Neuro: Moving all extremities spontaneously, following basic commands, not answering questions - Labs CBC & Chem 7: 08/08/18 05:16 08/09/18 04:27 Labs: Abnormal Lab Results - Last 24 Hours (Table) 08/08/18 08/08/18 08/08/18 Range/Units 11:47 16:47 20:22 ABG pH (7.35-7.45) ABG pCO2 (35-45) mmHg ABG pO2 (83-108) mmHg ABG Total CO2 (19-24) mmol/L ABG O2 Saturation (94-97) % Potassium (3.5-5.1) mmol/L BUN (9-20) mg/dL Glucose (74-99) mg/dL POC Glucose (mg/dL) 187 H 177 H 189 H (75-99) mg/dL 08/08/18 08/08/18 08/09/18 Range/Units 21:42 23:05 04:27 ABG pH 7.49 H (7.35-7.45) ABG pCO2 33 L (35-45) mmHg ABG pO2 49 L* (83-108) mmHg ABG Total CO2 26 H (19-24) mmol/L ABG O2 Saturation 87.0 L (94-97) % Potassium 3.4 L (3.5-5.1) mmol/L BUN 25 H (9-20) mg/dL Glucose 261 H (74-99) mg/dL POC Glucose (mg/dL) 187 H (75-99) mg/dL 08/09/18 Range/Units 06:41 ABG pH (7.35-7.45) ABG pCO2 (35-45) mmHg ABG pO2 (83-108) mmHg ABG Total CO2 (19-24) mmol/L ABG O2 Saturation (94-97) % Potassium (3.5-5.1) mmol/L BUN (9-20) mg/dL Glucose (74-99) mg/dL POC Glucose (mg/dL) 254 H (75-99) mg/dL Assessment and Plan Plan: Hypoxic respiratory failure secondary to aspiration vs less likely PE -Tube feeds held -Transferred to MICU -C/w non-rebreather mask with frequent suctioning, aspiration precautions. May consider switching to high flow nasal cannula as tolerated -Will c/w empiric Zosyn -C/w IVFs at 100 cc/hr and Mucomyst w/ bronchodilators -Will c/w Ativan for agitation prn -ABGs, CXR reviewed Acute brainstem CVA -S/p PEG tube placement -Patient was pending transfer to inpatient rehab. Will hold. Acute LLE DVT -C/w Xarelto for now Arthritis flare of L wrist -C/w Prednisone Diabetes mellitus -C/w STEPAN with FS -Tube feeds held HTN -C/w Lisinopril. DVT proph -Xarelto
[2018-08-09] MEDS: ACETYLCYSTEINE 800 MG/4 ML VIAL INHALATION SCH ×4 (09:59→18:54)
[2018-08-09 10:36] VITALS: BMI 29.6
[2018-08-09 12:01] LABS: Glucose,Whole Blood 221 mg/dL (75-99)
[2018-08-09 12:03] LABS: ABG HCO3 29 mmol/L (21-25); ABG PCO2 48 mmHg (35-45); ABG PH 7.39 (7.35-7.45); ABG PO2 108 mmHg (83-108); ABG TCO2 31 mmol/L (19-24)
[2018-08-09 13:39] LABS: Magnesium 2.7 mg/dL (1.6-2.3); Potassium 3.9 mmol/L (3.5-5.1)
[2018-08-09] MEDS ORDERED: NALOXONE 0.4 MG/ML 1 ML VIAL IV PRN (15:06)
[2018-08-09] MEDS ORDERED: POTASSIUM BICARBONATE/CIT AC 20 MEQ TABLET.EFF NG-TUBE SCH (16:00)
--- NOTE | 2018-08-09 16:04 | CONS ---
CONSULTATION PULMONARY/CRITICAL CARE CONSULTATION: DATE OF SERVICE: August 09, 2018. This is a 68-year-old male who was admitted through Emergency Room back on August 01. His initial admission diagnosis was that of cerebrovascular accident. The patient was thought to have a brainstem infarct. Unfortunately, the patient ended up in the intensive care unit yesterday. The patient was admitted here primarily because of possible aspiration and aspiration pneumonia. He did have a PEG tube placed on the . The patient has a history of DVT in the left leg, diabetes, hyperlipidemia, previous tobacco use. Chest x-ray shows bibasilar infiltrates. Yesterday's blood gas on a non-rebreather showed a PO2 of 49, a pCO2 of 33, and a pH 7.49. The blood gases consistent with respiratory alkalosis and profound hypoxemia. Currently still on a non- rebreather. The saturations are much better in the 94-96 percent range. I asked the nurses to start titrating his non-rebreather down. He is also receiving saline IV at KVO. His is in the room and provides some additional history while we are there. The patient is able to respond appropriately. His speech is a little garbled. MEDICAL HISTORY: Positive for hypertension, hyperlipidemia, and diabetes. He also has history of a recently discovered left lower extremity DVT and has a history of chronic tobacco use and may have some underlying COPD. MEDICATIONS: Outpatient medication prior to admission included Lipitor, fenofibrate, Procardia, Glucophage. ALLERGIES: Denied. PAST SURGICAL HISTORY: Includes among other things cataract procedure and on this admission a PEG tube placement. He also had video thorascopic evaluation. SOCIAL HISTORY: The patient is a chronic tobacco user. Denies alcohol or illicit drug use. FAMILY HISTORY: Positive for CVA and myocardial infarction in his father. REVIEW OF SYSTEMS: CONSTITUTIONAL: Weakness. NEUROLOGIC: CVA. HEENT: Negative. CARDIOVASCULAR: Negative. PULMONARY: Shortness of breath, chest congestion, possible aspiration pneumonia. GASTROINTESTINAL: Status post PEG tube. GENITOURINARY: Negative. RHEUMATOLOGIC, IMMUNOLOGICAL, HEMATOLOGIC AND DERMATOLOGICAL, ENDOCRINOLOGIC: All negative. PHYSICAL EXAMINATION: VITAL SIGNS: Current vital signs are reviewed. His temperature is 100.7, heart rate is 86, respiratory rate 27, blood pressure 132/80, mean 97, and a saturation on non- rebreather is between 94 and 96%. Appears mildly tachypneic and dyspneic. He has got very coarse sonorous respirations. HEENT examination is grossly unremarkable. Non-rebreather mask in place. NECK: Supple. Full range of motion. Cardiovascular examination reveals regular rhythm and rate. Heart sounds are distant. Heart rate somewhere between 85 to 90 beats per minute. S1, S2 normal. No distinct murmur noted. LUNGS: Coarse inspiratory and expiratory rhonchi. There is some crackles bilaterally. Breath sounds are diminished throughout, but equal bilaterally. ABDOMEN is soft. Bowel sounds are heard. PEG tube is noted. EXTREMITIES are intact. No cyanosis, clubbing, or edema. SKIN without rash. The patient does move all 4 extremities. NEUROLOGIC EXAMINATION: Given his mental status is difficult to assess. LAB DATA: Labs are reviewed. From today, sodium 139, potassium 3.4, chloride 104, CO2 25, BUN and creatinine were 25 and 1.02. Urine is negative. Chest x-ray on the shows some right infrahilar opacity suspicious for possible aspiration pneumonia. There is also some bibasilar atelectasis. Microbiologic studies are pending or negative. Medications are reviewed. They seem appropriate at this time. He is on updrafts. The patient is receiving Zosyn. The rest of his medications seem to be appropriate. ASSESSMENT: 1. Possible aspiration pneumonia, right lower lobe. 2. History of brainstem cerebrovascular accident. 3. Left lower extremity deep vein thrombosis. 4. Diabetes mellitus. 5. Hypertension. 6. Hyperlipidemia. 7. History of previous heavy tobacco use. 8. Status post PEG tube placement. PLAN: The patient will stay here in the ICU for observation. The patient is a high risk for further aspiration. I did ask for aspiration precautions and the fact that the patient has head of bed to be elevated at all times. The patient is currently not receiving anything by mouth. The is in the room with the patient. I explained the situation to her. The patient's medications are reviewed. Additional recommendations and suggestions are forthcoming. Prognosis is guarded. We will continue to follow. Critical care time is 33 minutes. MMAPOLINARL / ARNULFON: [id number] /
[2018-08-09 17:07] LABS: Glucose,Whole Blood 169 mg/dL (75-99)
[2018-08-09] MEDS: SODIUM CHLORIDE 0.9% 1,000 ML IV SCH (18:12)
[2018-08-09 20:31] LABS: Glucose,Whole Blood 162 mg/dL (75-99)
[2018-08-10] MEDS: POTASSIUM BICARBONATE/CIT AC 20 MEQ TABLET.EFF NG-TUBE SCH (00:21)
[2018-08-10] MEDS: PIPERACILLIN-TAZOBACTAM 3.375 GM in SODIUM CHLORIDE 0.9% 100 ML IVPB SCH ×4 (00:21→23:56)
[2018-08-10] MEDS: IPRATROPIUM-ALBUTEROL 3 ML NEB INHALATION SCH ×5 (03:10→19:59)
[2018-08-10 05:23] LABS: Basophils % (A) 0 %; Eosinophils # (A) 0.1 k/uL (0-0.7); Eosinophils % (A) 1 %; HCT 33.9 % (39.0-53.0); Lymphocytes # (A) 1.5 k/uL (1.0-4.8); Lymphocytes % (A) 15 %; MCH 30.2 pg (25.0-35.0); MCHC 32.4 g/dL (31.0-37.0); MCV 93.3 fL (80.0-100.0); Mean Platelet Volume 6.7; Monocytes # (A) 0.3 k/uL (0-1.0); Monocytes % (A) 3 %; Neutrophils # (A) 8.2 k/uL (1.3-7.7); Neutrophils % (A) 80 %; Platelet Count 314 k/uL (150-450); RBC 3.63 m/uL (4.30-5.90); RDW 13.3 % (11.5-15.5); WBC 10.2 k/uL (3.8-10.6)
[2018-08-10 05:28] LABS: Calcium 8.8 mg/dL (8.4-10.2); Magnesium 2.4 mg/dL (1.6-2.3); Phosphorus 2.1 mg/dL (2.5-4.5); Potassium 3.7 mmol/L (3.5-5.1)
[2018-08-10] MEDS ORDERED: POTASSIUM BICARBONATE/CIT AC 20 MEQ TABLET.EFF NG-TUBE SCH (06:00)
[2018-08-10] MEDS: SODIUM CHLORIDE 0.9% 1,000 ML IV SCH ×3 (06:23→21:45)
[2018-08-10 06:52] LABS: Glucose,Whole Blood 167 mg/dL (75-99)
--- NOTE | 2018-08-10 07:10 | XR ---
EXAMINATION TYPE: XR chest 1V DATE OF EXAM: 08/10/2018 COMPARISON: 08/09/2018 HISTORY: 68-year-old male history of aspiration TECHNIQUE: Single frontal view of the chest is obtained. FINDINGS: Heart remains borderline enlarged with diffuse interstitial prominence. Mild elongation thoracic aort a. Some patchy right midlung opacity. Improving aeration right base as well as retrocardiac region. N o sizable effusion. IMPRESSION: 1. Stable patchy right midlung infiltrate. 2. Improving infiltrates at the medial right base and retrocardiac region.
[2018-08-10] MEDS: INSULIN ASPART 100 UNIT/ML 1 ML 10 ML VIAL SQ SCH ×4 (07:39→21:44)
[2018-08-10] MEDS: ASPIRIN 325 MG TAB PEG/G-TUBE SCH (08:19)
[2018-08-10] MEDS: ATORVASTATIN 80 MG TAB PEG/G-TUBE SCH (08:19)
[2018-08-10] MEDS: prednisoLONE ORAL SOLUTION 15MG/5ML CUP PEG/G-TUBE SCH (08:19)
[2018-08-10] MEDS: RIVAROXABAN 15 MG TAB PO SCH ×2 (08:19→17:30)
[2018-08-10] MEDS: LISINOPRIL 10 MG TAB PEG/G-TUBE SCH (08:19)
[2018-08-10] MEDS: ACETYLCYSTEINE 800 MG/4 ML VIAL INHALATION SCH (09:09)
[2018-08-10 11:44] LABS: Glucose,Whole Blood 173 mg/dL (75-99)
--- NOTE | 2018-08-10 12:41 | PN ---
PROGRESS NOTE DATE OF SERVICE: 08/10/2018. This is a 68-year-old male who was admitted through the emergency department back on August 01. He apparently was admitted with a diagnosis of cerebrovascular accident. The patient was thought to have a brainstem infarct. The patient ended up in the intensive care unit on the . The patient was admitted primarily because of aspiration and aspiration pneumonia. He did have a PEG tube placed on . In addition to the above, he has a history of DVT in the left leg, diabetes, hyperlipidemia, and previous tobacco use. Currently, he is doing better. He is still on high-flow oxygen at 13 L. this is a concern. His chest x-ray looks a bit improved. He has got raspy respirations. IVs 0.9 at 100 mL/ hour. Microbiologic studies thus far negative. He has got some bibasilar infiltrates with some air bronchograms in the left lower lobe and retrocardiac region of the lung. His mental status is improved compared to yesterday. He has got a poor swallow mechanism. We are going to attempt to use tube feeds again. We do have him on aspiration precautions. Head of bed elevated at all times. His speech is a bit garbled. When he coughs, it is very congested and wet sounding. PHYSICAL EXAMINATION: Current vital signs are reviewed. Temperature is 99.1, heart rate is 89, respiratory rate 17, blood pressure 143/85, mean 104, and saturations are 94% on his 13 L high flow. Appears in no acute distress. HEENT examination is grossly unremarkable. Nasal O2 in place. Neck is supple. Full range of motion. No adenopathy. Cardiovascular examination reveals regular rhythm rate. Heart sounds are distant. Heart rate about 89-92 beats per minute. It is regular. Lungs reveal coarse rhonchi. Breath sounds are diminished. There is some crackles bilaterally. Breath sounds are diminished throughout. Abdomen is soft. Bowel sounds are heard. Extremities are intact. No cyanosis, clubbing, or edema. Skin without rash. Neurologic examination is brief but nonfocal. LAB DATA: Reviewed. White count 10.2, hemoglobin 11.0, hematocrit 33.9, platelet count 314,000, sodium and potassium normal. Chloride 108, CO2 of 28. BUN and creatinine were 26 and 1.05. Microbiologic studies are thus far negative. Chest x-ray reveals evidence of patchy bibasilar infiltrates and some atelectasis. Medications are reviewed. ASSESSMENT: 1. Aspiration pneumonia involving both lower lobes with air bronchograms. 2. History of brainstem cerebrovascular accident. 3. Left lower extremity deep vein thrombosis. 4. Diabetes mellitus by history. 5. History of hypertension. 6. Hyperlipidemia. 7. History of previous heavy tobacco use. 8. Status post PEG tube placement on August 07. PLAN: We will attempt to use the PEG tube again. The patient's head of bed will be elevated at all times. We will continue with breathing treatments and antibiotics. Prognosis is guarded. We will continue to follow him closely and keep him here in the ICU at least another day. No additional recommendations are made. Critical care time is 32 minutes. KIKE / RAJWINDER: [id number] /
--- NOTE | 2018-08-10 14:01 | P.PN ---
Subjective Progress Note Date: 08/10/18 The patient is a 68 yo F with a PMH of DM and HTN who was admitted for suspected CVA. The CTA and CT head were unremarkable. The patient was evaluate dby Neurology and believed to have a brain-stem CVA. He failed swallow evaluations and had a PEG inserted on 08/07. He was subsequently found to have a LLE DVT and was started on Xarelto. On 08/08/18 the patient was noted to be in respiratory distress and hypoxic. Upon suctioning, tube feed color and consistency material was retrieved. The patient was placed on supplemental oxygen, started on Zosyn empirically, and transferred to MICU. The patient was seen and examined at the bedside in the MICU on 08/09/18 at 0800. He was saturating 94-95% on non-rebreather mask with HR 102, T 101.2 and BP 130/70. His was at the bedside. Discussed with her the high suspicion of aspiration. The patient was agitated and only following basic commands, unable to provide any complaints. The patient was seen and examined at the bedside on 08/10/18. Patient's mental status improved significantly and he is AAOx3, answering questions, though speech is garbled. He continues to have productive cough and requiring 13 L oxygen via high flow but otherwise denying any active complaints including chest pain, nausea, vomiting, dizziness, or dysuria. Objective - Vital Signs Vital signs: Vital Signs Temp 97.9 F 08/10/18 12:00 Pulse 95 08/10/18 13:00 Resp 23 08/10/18 13:00 BP 154/90 08/10/18 13:00 Pulse Ox 95 08/10/18 13:00 Intake & Output 08/09/18 08/10/18 08/10/18 18:59 06:59 18:59 Intake Total 500 1300 870 Output Total 555 470 330 Balance -55 830 540 Weight 93.6 kg 93.7 kg 93.7 kg Intake: IV 500 1300 800 Piperacillin-Tazobactam 3 100 100 100 .375 gm In Sodium Chloride 0.9% 100 ml @ 25 mls/hr IVPB Q8HR [facility] Rx# :[id number] Sodium Chloride 0.9% 1, 400 1200 700 000 ml @ 100 mls/hr IV . Q10H [facility] Rx#:[id number] Tube Feeding 20 Other 50 Output: Urine 555 470 330 Other: Voiding Method Indwelling Catheter Indwelling Catheter Indwelling Catheter - Exam General: Non-toxic, in no acute distress, on high flow nasal cannula HEENT: NC/AT, anicteric sclerae, moist conjunctiva, no lid-lag, PERRLA Cardiovascular: S1/S2 wnl, no murmurs, rubs, or gallops Lungs: Bibasilar coarse breath sounds, no accessory muscle use Abdominal: Soft, PEG tube w/ overlying dress in place, clean, dry Skin: Warm, dry Extremities: No edema or contractures Psychiatric: Alert and oriented to person, place and time, appropriate affect, Intact judgment Neuro: Moving all extremities, no focal deficits - Labs CBC & Chem 7: 08/10/18 04:43 08/10/18 04:43 Labs: Abnormal Lab Results - Last 24 Hours (Table) 08/09/18 08/09/18 08/10/18 Range/Units 17:06 20:29 04:43 RBC 3.63 L (4.30-5.90) m/uL Hgb 11.0 L (13.0-17.5) gm/dL Hct 33.9 L (39.0-53.0) % Neutrophils # 8.2 H (1.3-7.7) k/uL Chloride (98-107) mmol/L BUN (9-20) mg/dL Glucose (74-99) mg/dL POC Glucose (mg/dL) 169 H 162 H (75-99) mg/dL Phosphorus (2.5-4.5) mg/dL Magnesium (1.6-2.3) mg/dL 08/10/18 08/10/18 08/10/18 Range/Units 04:43 06:50 11:42 RBC (4.30-5.90) m/uL Hgb (13.0-17.5) gm/dL Hct (39.0-53.0) % Neutrophils # (1.3-7.7) k/uL Chloride 108 H (98-107) mmol/L BUN 26 H (9-20) mg/dL Glucose 171 H (74-99) mg/dL POC Glucose (mg/dL) 167 H 173 H (75-99) mg/dL Phosphorus 2.1 L (2.5-4.5) mg/dL Magnesium 2.4 H (1.6-2.3) mg/dL Microbiology - Last 24 Hours (Table) 08/08/18 22:40 Blood Culture - Preliminary Blood No Growth after 24 hours 08/08/18 22:33 Blood Culture - Preliminary Blood No Growth after 24 hours Assessment and Plan Plan: Hypoxic respiratory failure secondary to aspiration -Tube feeds to be re-initiated today as per ICU -C/w high flow nasal cannula and decrease as tolerated -C/w empiric Zosyn -C/w IVFs at 100 cc/hr and Mucomyst w/ bronchodilators -Ativan DCed Acute brainstem CVA -S/p PEG tube placement -Patient was pending transfer to inpatient rehab. Will hold. Acute LLE DVT -C/w Xarelto for now Arthritis flare of L wrist -C/w Prednisone Diabetes mellitus -C/w STEPAN with FS -Tube feeds to be re-initiated HTN -C/w Lisinopril. DVT proph -Xarelto
[2018-08-10 17:29] LABS: Glucose,Whole Blood 152 mg/dL (75-99)
[2018-08-10 20:31] LABS: Glucose,Whole Blood 165 mg/dL (75-99)
[2018-08-11] MEDS: IPRATROPIUM-ALBUTEROL 3 ML NEB INHALATION SCH ×6 (00:26→20:13)
[2018-08-11 04:46] LABS: Basophils % (A) 0 %; Eosinophils # (A) 0.2 k/uL (0-0.7); Eosinophils % (A) 2 %; HCT 33.9 % (39.0-53.0); HGB 10.8 gm/dL (13.0-17.5); Lymphocytes # (A) 1.4 k/uL (1.0-4.8); Lymphocytes % (A) 13 %; MCHC 31.8 g/dL (31.0-37.0); MCV 94.5 fL (80.0-100.0); Mean Platelet Volume 6.7; Monocytes # (A) 0.4 k/uL (0-1.0); Monocytes % (A) 4 %; Neutrophils # (A) 9.2 k/uL (1.3-7.7); Neutrophils % (A) 80 %; Platelet Count 321 k/uL (150-450); RBC 3.59 m/uL (4.30-5.90); RDW 13.3 % (11.5-15.5); WBC 11.4 k/uL (3.8-10.6)
[2018-08-11 04:54] LABS: Anion Gap 7 mmol/L; Blood Urea Nitrogen 23 mg/dL (9-20); Calcium 8.6 mg/dL (8.4-10.2); Carbon Dioxide 25 mmol/L (22-30); Chloride 113 mmol/L (98-107); Glucose 167 mg/dL (74-99); Magnesium 2.2 mg/dL (1.6-2.3); Phosphorus 3.2 mg/dL (2.5-4.5); Potassium 3.7 mmol/L (3.5-5.1); Sodium 145 mmol/L (137-145)
[2018-08-11] MEDS: POTASSIUM CHLORIDE 10 MEQ in WATER FOR INJECTION 1 100ML.BAG IVPB SCH ×2 (06:13→07:20)
--- NOTE | 2018-08-11 06:39 | XR ---
EXAMINATION TYPE: XR chest 1V DATE OF EXAM: 08/11/2018 CLINICAL HISTORY: Difficulty breathing and aspiration progress study. TECHNIQUE: Single AP portable semiupright view of the chest is obtained. COMPARISON: Chest x-ray from one day earlier and older studies. FINDINGS: There is new right medial basilar opacity. There is new reticulonodular left basilar opaci ty. Upper lungs remain clear without pneumothorax. Cardiac silhouette size is stable and mildly enlar ged with ectatic thoracic aorta causing mass effect on the trachea. Osseous structures are intact. So mewhat low lung volumes redemonstrated. IMPRESSION: Mild cardiomegaly with background lower lung interstitial edema and/or infiltrate becomin g more prominent with additional more focal consolidation medial right lung base noted. Aspiration pn eumonia would be in the differential.
[2018-08-11 06:46] LABS: Glucose,Whole Blood 166 mg/dL (75-99)
[2018-08-11] MEDS: INSULIN ASPART 100 UNIT/ML 1 ML 10 ML VIAL SQ SCH ×4 (06:53→21:53)
[2018-08-11] MEDS: LABETALOL 5 MG/ML VIAL MDV IVP PRN ×3 (08:09→23:58)
--- NOTE | 2018-08-11 09:07 | PN ---
PROGRESS NOTE ADDENDUM: Critical care time is 32 minutes. KIKE / ARNULFON: [id number] /
--- NOTE | 2018-08-11 09:12 | PN ---
PROGRESS NOTE DATE OF SERVICE: 08/11/2018. HISTORY: This is a 68-year-old male who was admitted through the Emergency Department back on August 01 with a diagnosis of brainstem cerebrovascular accident. The patient ended up in the intensive care unit on the . He was admitted here primarily because of aspiration and aspiration pneumonia. He had a PEG tube placed on August 07 , blood yesterday pulled it out. He also has a history of DVT in the left leg, diabetes , hyperlipidemia, and previous tobacco use. He is currently on 7 L high flow. His IV is 0.9 at 100 mL an hour, which will be turned down to 50 mL an hour because his chest x- ray shows some mild fluid overload. He has been having issues with elevated blood pressure. I gave the order for the nurses to use either labetalol or IV Vasotec if the systolic was greater than 160 and mean was greater than 100. The patient will have the PEG tube replaced today. He is still having difficulty with chest congestion. His swallow mechanism is very poor. PHYSICAL EXAMINATION: Current vital signs are reviewed. His temperature is 99, heart rate 89, respiratory rate about 22, blood pressure 177/97 with a mean 123. His saturations are 96% on 7 L high flow. He appears in no acute distress. He does have a congested wet cough. His speech is somewhat garbled. HEENT examination is grossly unremarkable. Mucous membranes are moist. Nasal O2 in place. Neck is supple. Full range of motion. No adenopathy. Cardiovascular examination reveals regular rhythm and rate. Heart rate 80. Heart sounds are distant. S1, S2 normal. Lungs reveal coarse inspiratory and expiratory rhonchi. No wheezes. Breath sounds equal bilaterally. Abdomen is soft. Bowel sounds are heard. PEG tube has been pulled out by the patient. Extremities are intact. No cyanosis, clubbing, or edema. Skin without rash. Neurologic examination is difficult to evaluate. He does move all 4 extremities. LABS: Reviewed. White count 7.4, hemoglobin 10.8, hematocrit 33.9, platelet count normal. Sodium 145, potassium 3.7, chloride 113, CO2 25, anion gap 7, BUN 23 and creatinine 0.89. Microbiologic studies are all negative thus far. Chest x-ray was reviewed, it shows some atelectasis at the bases and mild interstitial edema. MEDICATIONS: Reviewed. Currently he is on antibiotics in the form of Zosyn. Again, I added labetalol and Vasotec for elevated blood pressure. ASSESSMENT: 1. Likely aspiration pneumonia involving both lower lobes with air bronchograms. 2. History of brainstem cerebrovascular accident. 3. Left lower extremity deep venous thrombosis. 4. Diabetes mellitus by history. 5. History of hypertension. 6. Hyperlipidemia. 7. History of previous heavy tobacco use. 8. Status post PEG tube placement on August 07 and removal by the patient on August 10. PLAN: The patient's PEG tube will be replaced. No additional recommendations are made. We will keep the bed elevated at all times. The patient has aspiration precautions. He remains on antibiotics. Microbiologic studies are thus far negative. Prognosis is guarded. He probably can move out of the ICU later today. No additional recommendations are made. Critical care time 32 minutes MMAPOLINARL / ARNULFON: [id number] / MTDD
[2018-08-11] MEDS: PIPERACILLIN-TAZOBACTAM 3.375 GM in SODIUM CHLORIDE 0.9% 100 ML IVPB SCH ×3 (09:17→23:57)
[2018-08-11] MEDS: ENALAPRILAT 1.25 MG/ML 1 ML VIAL IVP PRN ×3 (09:17→22:56)
[2018-08-11] MEDS: SODIUM CHLORIDE 0.9% 1,000 ML IV SCH ×3 (09:20→21:08)
[2018-08-11] MEDS: RIVAROXABAN 15 MG TAB PO SCH ×2 (09:22→17:19)
[2018-08-11] MEDS: prednisoLONE ORAL SOLUTION 15MG/5ML CUP PEG/G-TUBE SCH (09:22)
[2018-08-11] MEDS: ASPIRIN 325 MG TAB PEG/G-TUBE SCH (09:22)
[2018-08-11] MEDS: ATORVASTATIN 80 MG TAB PEG/G-TUBE SCH (09:22)
[2018-08-11] MEDS: LISINOPRIL 10 MG TAB PEG/G-TUBE SCH (09:22)
[2018-08-11] MEDS ORDERED: HALOPERIDOL LACTATE 5 MG/ML 1 ML VIAL IVP STA ×3 (10:20→10:58)
[2018-08-11] MEDS: SCOPOLAMINE 1.5MG/72HR PATCH TRANSDERM SCH (10:25)
[2018-08-11] MEDS ORDERED: LORazepam 2 MG/ML INJ IV STA (11:23)
[2018-08-11] MEDS ORDERED: HALOPERIDOL LACTATE 5 MG/ML 1 ML VIAL IVP PRN ×2 (12:00→12:02)
[2018-08-11 12:07] LABS: Glucose,Whole Blood 171 mg/dL (75-99)
[2018-08-11] MEDS: LORazepam 2 MG/ML INJ IV PRN ×2 (13:14→21:54)
--- NOTE | 2018-08-11 13:48 | P.PN ---
Subjective Progress Note Date: 08/11/18 The patient is a 68 yo F with a PMH of DM and HTN who was admitted for suspected CVA. The CTA and CT head were unremarkable. The patient was evaluate dby Neurology and believed to have a brain-stem CVA. He failed swallow evaluations and had a PEG inserted on 08/07. He was subsequently found to have a LLE DVT and was started on Xarelto. On 08/08/18 the patient was noted to be in respiratory distress and hypoxic. Upon suctioning, tube feed color and consistency material was retrieved. The patient was placed on supplemental oxygen, started on Zosyn empirically, and transferred to MICU. The patient was seen and examined at the bedside in the MICU on 08/09/18 at 0800. He was saturating 94-95% on non-rebreather mask with HR 102, T 101.2 and BP 130/70. His was at the bedside. Discussed with her the high suspicion of aspiration. The patient was agitated and only following basic commands, unable to provide any complaints. The patient was seen and examined at the bedside on 08/10/18. Patient's mental status improved significantly and he is AAOx3, answering questions, though speech is garbled. He continues to have productive cough and requiring 13 L oxygen via high flow but otherwise denying any active complaints including chest pain, nausea, vomiting, dizziness, or dysuria. Pt seen and examined in the MICU at the bedside on 08/11/18. He was agitated earlier today and had to be restrained. Not following commands, opening eyes to verbal stimuli. He received a total of 20 mg Haldol and 2 mg of Ativan. Saturating 94% on 4 L NC, HR 92, BP 160/82 Objective - Vital Signs Vital signs: Vital Signs Temp 99 F 08/11/18 08:00 Pulse 89 08/11/18 12:00 Resp 24 08/11/18 12:00 BP 157/79 08/11/18 12:00 Pulse Ox 92 L 08/11/18 12:00 Intake & Output 08/10/18 08/11/18 08/11/18 18:59 06:59 18:59 Intake Total 1470 1300 450 Output Total 650 750 400 Balance 820 550 50 Weight 93.7 kg 87.6 kg Intake: IV 1400 1300 350 Piperacillin-Tazobactam 3 200 100 .375 gm In Sodium Chloride 0.9% 100 ml @ 25 mls/hr IVPB Q8HR [facility] Rx# :[id number] Sodium Chloride 0.9% 1, 1200 1300 250 000 ml @ 50 mls/hr IV . Q20H [facility] Rx#:[id number] Intake, IV Titration 100 Amount Potassium Chloride 10 meq 100 In Water For Injection 1 100ml.bag @ 100 mls/hr IVPB Q1H [facility] Rx#: [id number] Tube Feeding 20 Other 50 Output: Urine 650 750 400 Other: Voiding Method Indwelling Catheter Indwelling Catheter Indwelling Catheter # Voids 0 - Exam General: Non-toxic, in no acute distress, on high flow nasal cannula HEENT: NC/AT, anicteric sclerae, moist conjunctiva, no lid-lag, PERRLA Cardiovascular: S1/S2 wnl, no murmurs, rubs, or gallops Lungs: Bilateral coarse breath sounds, no accessory muscle use Abdominal: Soft, PEG tube w/ overlying dress in place, clean, dry Skin: Warm, dry Extremities: No edema or contractures, [address], good circulation Psychiatric: Opening eyes to verbal stimuli, not following commands, agitated, moving all extremities spontaneously - Labs CBC & Chem 7: 08/11/18 04:11 08/11/18 04:11 Labs: Abnormal Lab Results - Last 24 Hours (Table) 08/10/18 08/10/18 08/11/18 Range/Units 17:27 20:29 04:11 WBC 11.4 H (3.8-10.6) k/uL RBC 3.59 L (4.30-5.90) m/uL Hgb 10.8 L (13.0-17.5) gm/dL Hct 33.9 L (39.0-53.0) % Neutrophils # 9.2 H (1.3-7.7) k/uL Chloride (98-107) mmol/L BUN (9-20) mg/dL Glucose (74-99) mg/dL POC Glucose (mg/dL) 152 H 165 H (75-99) mg/dL 08/11/18 08/11/18 08/11/18 Range/Units 04:11 06:45 12:05 WBC (3.8-10.6) k/uL RBC (4.30-5.90) m/uL Hgb (13.0-17.5) gm/dL Hct (39.0-53.0) % Neutrophils # (1.3-7.7) k/uL Chloride 113 H (98-107) mmol/L BUN 23 H (9-20) mg/dL Glucose 167 H (74-99) mg/dL POC Glucose (mg/dL) 166 H 171 H (75-99) mg/dL Microbiology - Last 24 Hours (Table) 08/08/18 22:40 Blood Culture - Preliminary Blood No Growth after 48 hours 08/08/18 22:33 Blood Culture - Preliminary Blood No Growth after 48 hours Assessment and Plan Plan: Hypoxic respiratory failure secondary to aspiration -Tube feeds being held for now -C/w high flow nasal cannula and decrease as tolerated -C/w empiric Zosyn -IVFs decreased to 50 cc/hr due to congestion on CXR today Delirium -S/p 20 mg Haldol and 2 mg Ativan -Currently on 4 point restraints since was pulling at tubes and trying to climb out of bed Acute brainstem CVA -S/p PEG tube placement -Patient was pending transfer to inpatient rehab. Will hold. Acute LLE DVT -C/w Xarelto for now Arthritis flare of L wrist -Will discontinue Prednisone as can also worsen delirium Diabetes mellitus -C/w STEPAN with FS HTN -C/w Lisinopril. Started on Labetalol DVT proph -Xarelto
[2018-08-11 17:12] LABS: Glucose,Whole Blood 137 mg/dL (75-99)
[2018-08-11 21:22] LABS: Glucose,Whole Blood 136 mg/dL (75-99)
[2018-08-12] MEDS: IPRATROPIUM-ALBUTEROL 3 ML NEB INHALATION SCH ×3 (00:14→08:50)
[2018-08-12 01:00] LABS: Appearance,Urine Cloudy (Clear); Bacteria,Urine Rare /hpf; Bilirubin,Urine Negative (Negative); Blood,Urine Large (Negative); Budding Yeast,Urine Rare /hpf; Color,Urine Yellow; Glucose,Urine (UA) Negative (Negative); Ketones,Urine Negative (Negative); Leukocyte Esterase,Urine Negative (Negative); Mucus,Urine Rare /hpf; Nitrite,Urine Negative (Negative); Protein,Urine Trace (Negative); RBC,Urine >182 /hpf (0-5); Specific Gravity,Urine 1.017 (1.001-1.035); Squamous Epithelial Cell,Urine <1 /hpf (0-4); Urobilinogen,Urine <2.0 mg/dL (<2.0)
[2018-08-12] MEDS: ENALAPRILAT 1.25 MG/ML 1 ML VIAL IVP PRN ×2 (02:46→07:11)
[2018-08-12] MEDS: ACETAMINOPHEN SUPPOSITORY 650 MG SUPP RECTAL PRN (03:09)
[2018-08-12 05:07] VITALS: TEMP 100.8
[2018-08-12 05:29] LABS: Basophils % (A) 0 %; Eosinophils # (A) 0.3 k/uL (0-0.7); Eosinophils % (A) 2 %; HCT 37.8 % (39.0-53.0); HGB 11.5 gm/dL (13.0-17.5); Hypochromasia Slight; Lymphocytes # (A) 1.4 k/uL (1.0-4.8); Lymphocytes % (A) 10 %; MCH 29.9 pg (25.0-35.0); MCHC 30.6 g/dL (31.0-37.0); MCV 97.7 fL (80.0-100.0); Mean Platelet Volume 7.2; Monocytes # (A) 0.7 k/uL (0-1.0); Monocytes % (A) 5 %; Neutrophils # (A) 10.6 k/uL (1.3-7.7); Neutrophils % (A) 81 %; Platelet Count 354 k/uL (150-450); RBC 3.86 m/uL (4.30-5.90); RDW 13.5 % (11.5-15.5); WBC 13.1 k/uL (3.8-10.6)
[2018-08-12 05:39] LABS: Anion Gap 7 mmol/L; Blood Urea Nitrogen 20 mg/dL (9-20); Calcium 8.8 mg/dL (8.4-10.2); Carbon Dioxide 31 mmol/L (22-30); Chloride 108 mmol/L (98-107); Glucose 164 mg/dL (74-99); Magnesium 2.3 mg/dL (1.6-2.3); Phosphorus 5.1 mg/dL (2.5-4.5); Potassium 4.9 mmol/L (3.5-5.1); Sodium 146 mmol/L (137-145)
[2018-08-12 07:04] LABS: Glucose,Whole Blood 161 mg/dL (75-99)
--- NOTE | 2018-08-12 07:11 | XR ---
EXAMINATION TYPE: XR chest 1V DATE OF EXAM: 08/12/2018 CLINICAL HISTORY: Difficulty breathing progress study. TECHNIQUE: Single AP portable semiupright view of the chest is obtained. COMPARISON: Chest x-ray from one day earlier and older studies. FINDINGS: There is improved aeration medial right lung base. There is worsening left basilar opacity . Upper lungs remain clear without pneumothorax. Cardiac silhouette size is stable and enlarged with ectatic thoracic aorta causing mass effect on the trachea redemonstrated. Osseous structures are int act. Somewhat low lung volumes remain present. IMPRESSION: Cardiomegaly with worsening left basilar acute infiltrate and/or atelectasis and possible small left pleural effusion. Resolving right medial right lung base atelectasis and/or infiltrate ho kayley noted.
[2018-08-12] MEDS: INSULIN ASPART 100 UNIT/ML 1 ML 10 ML VIAL SQ SCH (07:18)
[2018-08-12 07:51] VITALS: BP 153/82; PULSE 100; RESP 68
[2018-08-12] MEDS ORDERED: amLODIPine 5 MG TAB PO SCH (09:00)
--- NOTE | 2018-08-12 12:59 | P.DS ---
Providers Date of admission: 08/01/18 22:05 Attending physician: Lisbet Edward MD Consults: 08/02/18 00:45 Consult Physician Routine Consulting Provider: Neymar Us Consult Reason/Comments: brain stem stroke Do you want consulting provider notified?: Yes Placement Type Exists?: Yes 08/02/18 14:48 Consult Physician Routine Consulting Provider: Chilo Valente Consult Reason/Comments: evaluate for inpatient rehab Do you want consulting provider notified?: Yes 08/08/18 21:49 Consult Physician Urgent Consulting Provider: Randy Forde Consult Reason/Comments: acute resp failure w hypoxia Do you want consulting provider notified?: Yes Primary care physician: [facility] Course: The patient is a 68 yo F with a PMH of DM and HTN who was admitted for suspected CVA. The CTA and CT head were unremarkable. The patient was evaluated by Neurology and believed to have a brain-stem CVA. He failed swallow evaluations and had a PEG inserted on 08/07. He was subsequently found to have a LLE DVT and was started on Xarelto. On 08/08/18 the patient was noted to be in respiratory distress and hypoxic. Upon suctioning, tube feed color and consistency material was retrieved. The patient was placed on supplemental oxygen, started on Zosyn empirically, and transferred to MICU. The patient underwent aggressive suctioning and oral care with proper positioning. He initially improved and became AAOx3 though continued to require significant supplemental oxygen via high flow nasal cannula. The patient then however became delirious and pulled out his PEG tube and required multiple doses of ativan and haloperidol. His oxygen requirements then subsequently increased despite aggressive suctioning and positioning. Following a discussion with the patient's , the patient was made DNR/DNI to follow his wishes of not being on life-support or ventilator. On 08/12/18, he was noted to be hypoxic and subsequently developed agonal breathing. The patient on 08/12/18 at 0752 with at the bedside. Consoled the family (, brother, brother-in- law) at bedside and provided support. Physical Examination General: Pale elderly M HEENT: NC/AT, fixed-dilated pupils Cardiovascular: No heart sounds appreciated Lungs: No spontaneous breath sounds appreciated Abdominal: Soft, dressing in place Skin: Cold, no lesions noted Extremities: No edema or contractures Neuro: No spontaneous movements noted Discharge diagnosis: Hypoxic respiratory failure secondary to aspiration, Acute brainstem CVA, Acute LLE DVT, Diabetes Mellitus, HTN A total of 65 minutes of time were spent preparing this complex discharge summary. Plan - Discharge Summary Discharge Rx Participant: No New Discharge Prescriptions: No Action metFORMIN HCL ER [Glucophage Xr] 1,000 mg PO HS Fenofibrate Nanocrystallized [Fenofibrate] 145 mg PO DAILY Atorvastatin [Lipitor] 20 mg PO DAILY metFORMIN HCL ER [Glucophage Xr] 500 mg PO QAM glipiZIDE [Glucotrol] 5 mg PO TID NIFEdipine [Procardia XL] 90 mg PO DAILY Discharge Medication List Atorvastatin [Lipitor] 20 mg PO DAILY 08/01/18 [History] Fenofibrate Nanocrystallized [Fenofibrate] 145 mg PO DAILY 08/01/18 [History] NIFEdipine [Procardia XL] 90 mg PO DAILY 08/01/18 [History] glipiZIDE [Glucotrol] 5 mg PO TID 08/01/18 [History] metFORMIN HCL ER [Glucophage Xr] 1,000 mg PO HS 08/01/18 [History] metFORMIN HCL ER [Glucophage Xr] 500 mg PO QAM 08/01/18 [History] Activity/Diet/Wound Care/Special Instructions: SCOTTY Anaya starter pack $156/mo Discharge Disposition: - Preliminary Cause of Preliminary Cause of : Acute brainstem CVA
== END 2018-08-12 12:11 | disposition expired | DRG 64 ==
LOC: EC 18:05 → 3SCARD 22:05 → 2SICU 08-08 23:01
PROVIDERS: ADMIT Internal Medicine; ATTEND Internal Medicine
PROC: 3E0G76Z Introduction of Nutritional Substance into Upper GI, Via Natural or Artificial Opening (ICD-10-PCS; 2018-08-07)
PROC: 0DH63UZ Insertion of Feeding Device into Stomach, Percutaneous Approach (ICD-10-PCS; principal; 2018-08-07 08:30)
DX: I63.9 Cerebral infarction, unspecified (principal); J69.0 Pneumonitis due to inhalation of food and vomit; J96.01 Acute respiratory failure with hypoxia; R40.2344 Coma scale, best motor response, flexion withdrawal, 24 hours or more after hospital admission; E87.3 Alkalosis; I82.412 Acute embolism and thrombosis of left femoral vein; R13.12 Dysphagia, oropharyngeal phase; E87.70 Fluid overload, unspecified; J44.9 Chronic obstructive pulmonary disease, unspecified; E11.39 Type 2 diabetes mellitus with other diabetic ophthalmic complication; Z66 Do not resuscitate; R29.810 Facial weakness; H53.2 Diplopia; R26.0 Ataxic gait; R47.81 Slurred speech; R47.02 Dysphasia; R27.8 Other lack of coordination; I10 Essential (primary) hypertension; G31.9 Degenerative disease of nervous system, unspecified; R40.2142 Coma scale, eyes open, spontaneous, at arrival to emergency department; R40.2362 Coma scale, best motor response, obeys commands, at arrival to emergency department; R40.2252 Coma scale, best verbal response, oriented, at arrival to emergency department; R40.2134 Coma scale, eyes open, to sound, 24 hours or more after hospital admission; R40.2244 Coma scale, best verbal response, confused conversation, 24 hours or more after hospital admission; R29.703 NIHSS score 3; E78.5 Hyperlipidemia, unspecified; M19.032 Primary osteoarthritis, left wrist; H54.61 Unqualified visual loss, right eye, normal vision left eye; R45.1 Restlessness and agitation; F17.210 Nicotine dependence, cigarettes, uncomplicated; Z78.1 Physical restraint status; Z79.84 Long term (current) use of oral hypoglycemic drugs; Z79.899 Other long term (current) drug therapy; Z86.718 Personal history of other venous thrombosis and embolism; Z85.828 Personal history of other malignant neoplasm of skin; Z98.41 Cataract extraction status, right eye; Z82.3 Family history of stroke; Z82.49 Family history of ischemic heart disease and other diseases of the circulatory system
CPT/HCPCS: 36415; 36600; 43246; 70450; 70496; 70498; 70551; 71045; 71046; 74230; 80048; 80053; 80061; 81001; 81003; 82550; 82553; 82607; 82805; 83036; 83735; 84100; 84132; 84443; 84484; 85025; 85027; 85610; 85730; 87040; 93005; 93306; 94640; 94667; 94668; 99291